=== PATIENT | female | born 1960 | race Caucasian/White ===

== ENCOUNTER 2022-10-17 11:51 | Observation (INO) | payer BC ==
--- OUTSIDE RECORDS SUMMARY | 2022-10-17 11:59 | XMS REPORT | Continuity of Care Document ---
:1960 Author Organization [facility] t Address [address] [place] [address] Care Team Providers Name Role Phone Kolby Sewell MD Primary Care Physician KOLBY SEWELL Attending Clinician Unavailable BIA DIAZ Attending Clinician Unavailable [id number] Attending Clinician Unavailable ESTHER VENCES Attending Clinician Unavailable PRISCA FALOCN Attending Clinician Unavailable MD MORENO Attending Clinician Unavailable FLU, CLEAR HERNANDEZ Attending Clinician Unavailable FLU, [facility] Attending Clinician Unavailable TESS BYERS Attending Clinician Unavailable SHANNON BECKER Attending Clinician Unavailable COVID-MODERNA VACC, TO Attending Clinician Unavailable CHEO APODACA Attending Clinician Unavailable COVID-MODERNA VACC, CLEAR HERNANDEZ Attending Clinician Unavailab le LAB39 Attending Clinician Unavailable Shannon Becker MD Attending Clinician Britany Toro OD Attending Clinician FANY REAL Attending Clinician Unavailable TORRES DAMICO Attending Clinician Unavailable RAS GARRIDO Attending Clinician Unavailable JUD CHO Attending Clinician Unavailable SWAB, CK COVID SELF Attending Clinician Unavailable TRED53 Attending Clinician Unavailable Bharath Chavez MD Attending Clinician Ras Garrido MD Attending Clinician TAMIA SARGENT Attending Clinician Unavailable RAGHAVENDRA ISLVA Attending Clinician Unavailable Kolby Sewell MD Attending Clinician Vangie SHEN, Esther Attending Clinician Roland SHEN, Kehinde Salas Attending Clinician JACQUELIN ELIZALDE Attending Clinician Unavailable Payers Payer Name Policy Type Policy Number Effective Date Expiration Date Bowen fonseca [facility] [id number] 2021 [place] ([employer] 00:00:00 CAPITATED) Problems Condition Condition Condition Status Onset Resolution Last Treating Co mments Source Name Details Category Date Date Treatment Clinician Date Hyperlipid Hyperlipid Disease Active 2020-09 K elsey emia LDL emia LDL 2-14 Seybol d goal <100 goal <100 00:00: - 00 Externa l Essential Essential Disease Active Karlos sey hypertensi hypertensi 1-20 Se ybold on on 00:00: - 00 Externa l Allergies, Adverse Reactions, Alerts Allergy Allergy Status Severity Reaction(s) Onset Inactive Treating Comm ents Source Name Type Date Date Clinician Bee Propensi Active Other Tsering Venom ty to 05-07 reaction( Seybold adverse 00:00: s): - reaction 00 Unknown - Exter na s See l comments Sulfa Propensi Active Rash Tsering Drugs ty to 05-07 Seybold adverse 00:00: - reaction 00 Externa s l Na Propensi Active Rash Tsering Benzoate ty to 02-20 Seybold -Sulfame adverse 00:00: - thoxazol reaction 00 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 Bee Propensi Active Tsering ty to 02-20 Seybold adverse 00:00: - reaction 00 Externa s l Benzocai Propensi Active Swelling Roslyn ey ne ty to 02-20 Seybold adverse 00:00: - reaction 00 Externa s l Lidocain Propensi Active Swelling Roslyn ey e ty to 02-20 Seybold adverse 00:00: - reaction 00 Externa s l Procaine Propensi Active Swelling Roslyn ey Hcl ty to 02-20 Seybold adverse 00:00: - reaction 00 Externa s l Social History Social Habit Start Date Stop Date Quantity Comments Source History SDOH Tsering Seybo ld - Alcohol Frequency Externa l History SDOH Tsering [place] ld - Alcohol Std Drinks 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 al History SDOH Tsering [place] ld - Alcohol Binge External Alcohol intake 2022-09-29 2022-09-29 .57 /d Tsering tran - 00:00:00 00:00:00 External Exposure to 2021-12-27 2022-01-06 Not sure Tsering Alexander d SARS-CoV-2 (event) 00:00:00 08:15:00 Tobacco use and 2018-07-04 2018-07-04 Smokeless tobacco Ke netta Smith - exposure 00:00:00 00:00:00 non-user External Tobacco Comment 2015-12-19 2015-12-19 quit 10 years Tsering Smith - 00:00:00 00:00:00 ago, smoked for External 30 years, 1/2 pack a day Alcohol Comment 2015-02-20 2015-02-20 occa Tsering milner - 00:00:00 00:00:00 External History of tobacco 2005-09-04 Smoker Tsering Smith - use 00:00:00 External Sex [birth year] Tsering milner - 00:00:00 00:00:00 External Smoking Status Start Date Stop Date Source Ex-smoker 2018-07-04 00:00:00 2018-07-04 00:00:00 Tsering kaur - External Medications Ordered Filled Start Stop Current Ordering Indication Dosage Frequency Signature Comments Components Source Medication Medication Date Date Medication? Clinician (SIG) Name Name TIFFANIE Yes Take by Roslyn torres OR 09-29 mouth Seybold 14:25: - 37 Externa l Multiple Yes Take by Tsering Vitamins-Mi 09-29 mouth Seybold nerals 14:25: - (ZINC OR) 37 Externa l COLLAGEN OR Yes Take by Karlos palomoy 09-29 mouth Seybold 14:25: - 37 Externa l KRILL OIL Yes Take by Karlosse y OR 09-29 mouth Seybold 14:25: - 37 Externa l OMEPRAZOLE Yes Take by Roslyn ey OR 09-29 mouth Seybold 14:25: - 37 Externa l Flaxseed, 2022- No Take by Roslyn torres Linseed, 09-29 mouth Seybold (Flax Seed 14:24: 00:00 - Oil) 1000 19 :00 Externa MG oral Cap l Misc 2022- No Take by Tsering Natural 09-29 mouth Seybold Products 14:23: 00:00 - (FIBER 7 57 :00 Externa OR) l Vitamin E 2022- No 100U Take 100 Karlos sey 100 units 09-29 units by Seybo ld oral Cap 14:23: 00:00 mouth - 51 :00 daily Externa l Cyanocobala 2022- No Take by [place] chadwick min 09-29 mouth Seybold (VITAMIN B 14:22: 00:00 - 12 OR) 32 :00 Externa l Cholecalcif 2022- No Take by [place] chadwick fatmata 09-29 mouth Seybold (Vitamin 14:22: 00:00 - D3) 1.25 MG 20 :00 Externa (44708 UT) l oral Cap Multiple Yes Take by Tsering Vitamin 09-29 mouth Seybold (MULTI-CATHI 14:07: - MINS OR) 37 Externa l Ascorbic Yes 100mg Take 100 Roslyn ey Acid 09-29 mg by Seybold (Vitamin C) 14:07: mouth - 100 MG oral 37 daily Externa Tab l Bacillus Yes Take by Tsering Coagulans-I 09-29 mouth Seybold nulin 14:07: - (Probiotic) 37 Externa 1-250 l BILLION-MG oral Cap Carvedilol 2021-09 Yes [id number] 12.5mg Take 1 Tsering 12.5 MG 2-08 tablet Seybold oral Tablet 00:00: (12.5 mg - 00 total) by Externa mouth in l the morning and 1 tablet (12.5 mg total) in the evening. Take with meals. For blood pressure and heart rate. Rosuvastati 2021-09 Yes [id number] 10mg Take 1 Tsering n Calcium 2-08 tablet (10 Seyb old 10 MG oral 00:00: mg total) - Tablet 00 by mouth Externa daily l Multiple 2021-09 Yes Take by Tsering Vitamin -11 mouth Seybold (MULTI-CATHI 14:01: - MINS OR) 02 Externa l Ascorbic 2021-09 Yes 100mg Take 100 Roslyn ey Acid 1-11 mg by Seybold (Vitamin C) 14:01: mouth - 100 MG oral 02 daily Externa Tab l Cholecalcif 2021-09 Yes Take by Karlos enrike fatmata 09-14 mouth Seybold (Vitamin 14:01: - D3) 1.25 MG 02 Externa (11944 UT) l oral Cap Cyanocobala 2021-09 Yes Take by Karlos palomoshai min 11 mouth Seybold (VITAMIN B 14:01: - 12 OR) 02 Externa l Vitamin E 2021-09 Yes 100U Take 100 Roslyn ey 100 units 09-14 units by Seybol d oral Cap 14:01: mouth - 02 daily Externa l Flaxseed, 2021-09 Yes Take by Azeb y Linseed, -11 mouth Seybold (Flax Seed 14:01: - Oil) 1000 02 Externa MG oral Cap l Bacillus 2021-09 Yes Take by Tsering Coagulans-I -11 mouth Seybold nulin 14:01: - (Probiotic) 02 Externa 1-250 l BILLION-MG oral Cap Misc 2021-09 Yes Take by Tsering Natural 11 mouth Seybold Products 14:01: - (FIBER 7 02 Externa OR) l Estradiol 2021-09 Yes Three Tsering (Vagifem) -11 times Seybold 10 MCG 00:00: weekly - vaginal 00 Externa Tablet l ESTRADIOL 2021-09 Yes To vaginal Ke lsey VAGINAL 09-14 introitus Seybold (ESTRACE 00:00: nightly - VAGINAL) 00 Externa 0.1 MG/GM l vaginal Cream Estradiol 2021-09- No Three Tsering (Vagifem) 09-14 times Seybold 10 MCG 00:00: 00:00 weekly - vaginal 00 :00 Externa Tablet l ESTRADIOL 2021-09- No To vaginal K elsey VAGINAL 09-14 introitus Seybol d (ESTRACE 00:00: 00:00 nightly - VAGINAL) 00 :00 Externa 0.1 MG/GM l vaginal Cream Yuvafem [address] Orslyn ey MCG vaginal 9-29 TABLET Seybol d Tablet 00:00: VAGINALLY - 00 TWICE A Externa WEEK. l Yuvafem [address] Roslyn ey MCG vaginal 9-29 TABLET Seybol d Tablet 00:00: VAGINALLY - 00 TWICE A Externa WEEK. l Multiple Yes Take by Tsering Vitamin 5-20 mouth Seybold (MULTI-CATHI 15:27: MINS OR) 16 Ascorbic Yes 100mg Take 100 Roslyn ey Acid 5-20 mg by Seybold (Vitamin C) 15:27: mouth 100 MG oral 16 daily Tab Cholecalcif Yes Take by Karlos palomoy fatmata 5-20 mouth Seybold (Vitamin 15:27: D3) 1.25 MG 16 (14045 UT) oral Cap Cyanocobala Yes Take by Karlos calvert min 5-20 mouth Seybold (VITAMIN B 15:27: 12 OR) 16 Vitamin E Yes 100U Take 100 Roslyn ey 100 units 5-20 units by Seybol d oral Cap 15:27: mouth 16 daily Flaxseed, Yes Take by Azeb y Linseed, 5-20 mouth Seybold (Flax Seed 15:27: Oil) 1000 16 MG oral Cap Bacillus Yes Take by Tsering Coagulans-I 5-20 mouth Seybold nulin 15:27: (Probiotic) 16 1-250 BILLION-MG oral Cap Misc Yes Take by Tsering Natural 5-20 mouth Seybold Products 15:27: (FIBER 7 16 OR) Multiple Yes Take by Tsering Vitamin 3-12 mouth Seybold (MULTI-CATHI 09:23: MINS OR) 51 Ascorbic 0 Yes 100mg Take 100 Roslyn ey Acid 3-12 mg by Seybold (Vitamin C) 09:23: mouth 100 MG oral 51 daily Tab Cholecalcif Yes Take by Karlos palomoy fatmata 3-12 mouth Seybold (Vitamin 09:23: D3) 1.25 MG 51 (71186 UT) oral Cap Cyanocobala Yes Take by Karlos sey min 3-12 mouth Seybold (VITAMIN B 09:23: 12 OR) 51 Vitamin E 2021-0 Yes 100U Take 100 Roslyn ey 100 units 3-12 units by Seybol d oral Cap 09:23: mouth 51 daily Flaxseed, 2021-0 Yes Take by Azeb y Linseed, 3-12 mouth Seybold (Flax Seed 09:23: Oil) 1000 51 MG oral Cap Bacillus 0 Yes Take by Tsering Coagulans-I 3-12 mouth Seybold nulin 09:23: (Probiotic) 51 1-250 BILLION-MG oral Cap Misc Yes Take by Tsering Natural 3-12 mouth Seybold Products 09:23: (FIBER 7 51 OR) Multiple Yes Take by Tsering Vitamin 3-12 mouth Seybold (MULTI-CATHI 09:23: MINS OR) 51 Ascorbic 0 Yes 100mg Take 100 Roslyn ey Acid 3-12 mg by Seybold (Vitamin C) 09:23: mouth 100 MG oral 51 daily Tab Cholecalcif Yes Take by Karlos enrike fatmata 3-12 mouth Seybold (Vitamin 09:23: D3) 1.25 MG 51 (97642 UT) oral Cap Cyanocobala 0 Yes Take by Karlos enrike min 3-12 mouth Seybold (VITAMIN B 09:23: 12 OR) 51 Vitamin E 0 Yes 100U Take 100 Roslyn ey 100 units 3-12 units by Seybol d oral Cap 09:23: mouth 51 daily Flaxseed, 0 Yes Take by Azeb y Linseed, 3-12 mouth Seybold (Flax Seed 09:23: Oil) 1000 51 MG oral Cap Bacillus 0 Yes Take by Tsering Coagulans-I 3-12 mouth Seybold nulin 09:23: (Probiotic) 51 1-250 BILLION-MG oral Cap Misc Yes Take by Tsering Natural 3-12 mouth Seybold Products 09:23: (FIBER 7 51 OR) Methylpredn 0 2021- No [id number] 40mg Tsering isolone 10-13 Seybold Acetate 20:15: 22:08 (Depo-Medro 00 :00 l) 40 mg/ml - Physician Administere d (J1030) Methylpredn 0 2021- No [id number] 40mg 40 mg, Tsering isolone 2-05 06- Physician Seybol d Acetate 20:15: 22:08 Administer (Depo-Medro 00 :00 ed, ONCE, l) 40 mg/ml 1 dose, On - Physician 10/13/21 Administere at 1415 d (J1030) Multiple Yes Take by Tsering Vitamin 2-09 mouth Seybold (MULTI-CATHI 13:47: MINS OR) 07 Ascorbic Yes 100mg Take 100 Roslyn ey Acid 2-09 mg by Seybold (Vitamin C) 13:47: mouth 100 MG oral 07 daily Tab Cholecalcif Yes Take by Karlos calvert fatmata 2-09 mouth Seybold (Vitamin 13:47: D3) 1.25 MG 07 (95819 UT) oral Cap Cyanocobala Yes Take by Karlos calvert min 2-09 mouth Seybold (VITAMIN B 13:47: 12 OR) 07 Vitamin E Yes 100U Take 100 Roslyn ey 100 units 2-09 units by Seybol d oral Cap 13:47: mouth 07 daily Flaxseed, Yes Take by Azeb y Linseed, 2-09 mouth Seybold (Flax Seed 13:47: Oil) 1000 07 MG oral Cap Bacillus Yes Take by Tsering Coagulans-I 2-09 mouth Seybold nulin 13:47: (Probiotic) 07 1-250 BILLION-MG oral Cap Misc Yes Take by Tsering Natural 2-09 mouth Seybold Products 13:47: (FIBER 7 07 OR) Multiple 2020-09 Yes Take by Tsering Vitamin 2-14 mouth Seybold (MULTI-CATHI 14:08: MINS OR) 53 Ascorbic 2020-09 Yes 100mg Take 100 Roslyn ey Acid 2-14 mg by Seybold (Vitamin C) 14:08: mouth 100 MG oral 53 daily Tab Cholecalcif 2020-09 Yes Take by Karlos calvert fatmata 2-14 mouth Seybold (Vitamin 14:08: D3) 1.25 MG 53 (11128 UT) oral Cap Cyanocobala 2020-09 Yes Take by Karlos palomoy min 2-14 mouth Seybold (VITAMIN B 14:08: 12 OR) 53 Vitamin E 2020-09 Yes 100U Take 100 Roslyn ey 100 units 2-14 units by Seybol d oral Cap 14:08: mouth 53 daily Flaxseed, 2020-09 Yes Take by Azeb y Linseed, 2-14 mouth Seybold (Flax Seed 14:08: Oil) 1000 53 MG oral Cap Bacillus 2020-09 Yes Take by Tsering Coagulans-I 2-14 mouth Seybold nulin 14:08: (Probiotic) 53 1-250 BILLION-MG oral Cap Misc 2020-09 Yes Take by Tsering Natural 2-14 mouth Seybold Products 14:08: (FIBER 7 53 OR) Rosuvastati 2020-09 Yes [id number] 10mg Take 1 Tsering n Calcium 2-14 tablet (10 Seyb old 10 MG oral 00:00: mg total) Tablet 00 by mouth daily For cholestero l and triglyceri guillermina PEG-ELECTRO 2020-09 Yes [id number] Instructio Tsering LYTE SOLN 2-14 n given to Seyb old (Golytely) 00:00: patient in 236 g oral 00 clinic. Recon Soln Use as directed by provider during office visit. Rosuvastati 2020-09 Yes [id number] 10mg Take 1 Tsering n Calcium 2-14 tablet (10 Seyb old 10 MG oral 00:00: mg total) Tablet 00 by mouth daily For cholestero l and triglyceri guillermina Rosuvastati 2020-09 Yes [id number] 10mg Take 1 Tsering n Calcium 2-14 tablet (10 Seyb old 10 MG oral 00:00: mg total) Tablet 00 by mouth daily For cholestero l and triglyceri guillermina Rosuvastati 2020-09 Yes [id number] 10mg Take 1 Tsering n Calcium 2-14 tablet (10 Seyb old 10 MG oral 00:00: mg total) Tablet 00 by mouth daily For cholestero l and triglyceri guillermina Rosuvastati 2020-09 Yes [id number] 10mg Take 1 Tsering n Calcium 2-14 tablet (10 Seyb old 10 MG oral 00:00: mg total) Tablet 00 by mouth daily For cholestero l and triglyceri guillermina Rosuvastati 2020-09 Yes [id number] 10mg Take 1 Tsering n Calcium 2-14 tablet (10 Seyb old 10 MG oral 00:00: mg total) - Tablet 00 by mouth Externa daily For l cholestero l and triglyceri guillermina Bacillus 2020-09 Yes Take by Tsering Coagulans-I 2-10 mouth Seybold nulin 15:23: (Probiotic) 02 1-250 BILLION-MG oral Cap Multiple 2020-09 Yes Take by Tsering Vitamin 2-10 mouth Seybold (MULTI-CATHI 15:16: MINS OR) 37 Ascorbic 2020-09 Yes 100mg Take 100 Roslyn ey Acid 2-10 mg by Seybold (Vitamin C) 15:16: mouth 100 MG oral 37 daily Tab Cholecalcif 2020-09 Yes Take by Karlos calvert fatmata 2-10 mouth Seybold (Vitamin 15:16: D3) 1.25 MG 37 (71136 UT) oral Cap Cyanocobala 2020-09 Yes Take by Karlos calvert min 2-10 mouth Seybold (VITAMIN B 15:16: 12 OR) 37 Vitamin E 2020-09 Yes 100U Take 100 Roslyn ey 100 units 2-10 units by Seybol d oral Cap 15:16: mouth 37 daily Flaxseed, 2020-09 Yes Take by Azeb y Linseed, 2-10 mouth Seybold (Flax Seed 15:16: Oil) 1000 37 MG oral Cap Misc 2020-09 Yes Take by Tsering Natural 2-10 mouth Seybold Products 15:16: (FIBER 7 37 OR) Carvedilol 2020-09 Yes [id number] 12.5mg Take 1 Tsering 12.5 MG 2-10 tablet Seybold oral Tablet 00:00: (12.5 mg 00 total) by mouth 2 times daily (with meals) For blood pressure and heart rate Lisinopril 2020-09 Yes [id number] 40mg Take 1 K elsey 40 MG oral 2-10 tablet (40 Sey bold Tablet 00:00: mg total) 00 by mouth daily Carvedilol 2020-09 Yes [id number] 12.5mg Take 1 Tsering 12.5 MG 2-10 tablet Seybold oral Tablet 00:00: (12.5 mg 00 total) by mouth 2 times daily (with meals) For blood pressure and heart rate Lisinopril 2020-09 Yes [id number] 40mg Take 1 K elsey 40 MG oral 2-10 tablet (40 Sey bold Tablet 00:00: mg total) 00 by mouth daily Carvedilol 2020-09 Yes [id number] 12.5mg Take 1 Tsering 12.5 MG 2-10 tablet Seybold oral Tablet 00:00: (12.5 mg 00 total) by mouth 2 times daily (with meals) For blood pressure and heart rate Lisinopril 2020-09 Yes [id number] 40mg Take 1 K elsey 40 MG oral 2-10 tablet (40 Sey bold Tablet 00:00: mg total) 00 by mouth daily Carvedilol 2020-09 Yes [id number] 12.5mg Take 1 Tsering 12.5 MG 2-10 tablet Seybold oral Tablet 00:00: (12.5 mg 00 total) by mouth 2 times daily (with meals) For blood pressure and heart rate Lisinopril 2020-09 Yes [id number] 40mg Take 1 K elsey 40 MG oral 2-10 tablet (40 Sey bold Tablet 00:00: mg total) 00 by mouth daily Carvedilol 2020-09 Yes [id number] 12.5mg Take 1 Tsering 12.5 MG 2-10 tablet Seybold oral Tablet 00:00: (12.5 mg 00 total) by mouth 2 times daily (with meals) For blood pressure and heart rate Lisinopril 2020-09 Yes [id number] 40mg Take 1 K elsey 40 MG oral 2-10 tablet (40 Sey bold Tablet 00:00: mg total) 00 by mouth daily Carvedilol 2020-09 Yes [id number] 12.5mg Take 1 Tsering 12.5 MG 2-10 tablet Seybold oral Tablet 00:00: (12.5 mg 00 total) by mouth 2 times daily (with meals) For blood pressure and heart rate Lisinopril 2020-09 Yes [id number] 40mg Take 1 K elsey 40 MG oral 2-10 tablet (40 Sey bold Tablet 00:00: mg total) 00 by mouth daily Carvedilol 2020-09 Yes [id number] 12.5mg Take 1 Tsering 12.5 MG 2-10 tablet Seybold oral Tablet 00:00: (12.5 mg - 00 total) by Externa mouth 2 l times daily (with meals) For blood pressure and heart rate Lisinopril 2020-09 Yes [id number] 40mg Take 1 K elsey 40 MG oral 2-10 tablet (40 Sey bold Tablet 00:00: mg total) - 00 by mouth Externa daily l Lisinopril 2020-09 Yes [id number] 40mg Take 1 K elsey 40 MG oral 2-10 tablet (40 Sey bold Tablet 00:00: mg total) - 00 by mouth Externa daily l Estradiol 2020-09 Yes 1{tbl} Place 1 Karlos sey (Yuvafem) 0-18 tablet Seybold 10 MCG 00:00: vaginally vaginal 00 twice a Tablet week Estradiol 2020-09 Yes 1{tbl} Place 1 Karlos sey (Yuvafem) 0-18 tablet Seybold 10 MCG 00:00: vaginally vaginal 00 twice a Tablet week Estradiol 2020-09 Yes 1{tbl} Place 1 Karlos sey (Yuvafem) 0-18 tablet Seybold 10 MCG 00:00: vaginally vaginal 00 twice a Tablet week Estradiol 2020-09 Yes 1{tbl} Place 1 Karlos sey (Yuvafem) 0-18 tablet Seybold 10 MCG 00:00: vaginally vaginal 00 twice a Tablet week Estradiol 2020-09 Yes 1{tbl} Place 1 Karlos sey (Yuvafem) 0-18 tablet Seybold 10 MCG 00:00: vaginally vaginal 00 twice a Tablet week Estradiol 2020-09 Yes 1{tbl} Place 1 Karlos sey (Yuvafem) 0-18 tablet Seybold 10 MCG 00:00: vaginally vaginal 00 twice a Tablet week Estradiol 2020-09 Yes 1{tbl} Place 1 Karlos sey (Yuvafem) 0-18 tablet Seybold 10 MCG 00:00: vaginally vaginal 00 twice a Tablet week Multiple 2020-09 Yes Take by Tsering Vitamin 0-15 mouth Seybold (MULTI-CATHI 13:20: MINS OR) 30 Ascorbic 2020-09 Yes 100mg Take 100 Roslyn ey Acid 0-15 mg by Seybold (Vitamin C) 13:20: mouth 100 MG oral 30 daily Tab Cholecalcif 2020-09 Yes Take by Karlos calvert fatmata 0-15 mouth Seybold (Vitamin 13:20: D3) 1.25 MG 30 (71474 UT) oral Cap Cyanocobala 2020-09 Yes Take by Karlos palomoy min 0-15 mouth Seybold (VITAMIN B 13:20: 12 OR) 30 Vitamin E 2020-09 Yes 100U Take 100 Roslyn ey 100 units 0-15 units by Seybol d oral Cap 13:20: mouth 30 daily Flaxseed, 2020-09 Yes Take by Azeb y Linseed, 0-15 mouth Seybold (Flax Seed 13:20: Oil) 1000 30 MG oral Cap Bacillus 2020-09 Yes Take by Tsering Coagulans-I 0-15 mouth Seybold nulin 13:20: (Probiotic) 30 1-250 BILLION-MG oral Cap Misc 2020-09 Yes Take by Tsering Natural 0-15 mouth Seybold Products 13:20: (FIBER 7 30 OR) ESTRADIOL 2020-09 Yes Pea size Roslyn ey VAGINAL 0-15 to Seybold (ESTRACE 00:00: introitus VAGINAL) 00 nightly. 0.1 MG/GM vaginal Cream ESTRADIOL 2020-09 Yes Pea size Roslyn ey VAGINAL 0-15 to Seybold (ESTRACE 00:00: introitus VAGINAL) 00 nightly. 0.1 MG/GM vaginal Cream ESTRADIOL 2020-09 Yes Pea size Roslyn ey VAGINAL 0-15 to Seybold (ESTRACE 00:00: introitus VAGINAL) 00 nightly. 0.1 MG/GM vaginal Cream ESTRADIOL 2020-09 Yes Pea size Roslyn ey VAGINAL 0-15 to Seybold (ESTRACE 00:00: introitus VAGINAL) 00 nightly. 0.1 MG/GM vaginal Cream ESTRADIOL 2020-09 Yes Pea size Roslyn ey VAGINAL 0-15 to Seybold (ESTRACE 00:00: introitus VAGINAL) 00 nightly. 0.1 MG/GM vaginal Cream ESTRADIOL 2020-09 Yes Pea size Roslyn ey VAGINAL 0-15 to Seybold (ESTRACE 00:00: introitus VAGINAL) 00 nightly. 0.1 MG/GM vaginal Cream ESTRADIOL 2020-09 Yes Pea size Roslyn ey VAGINAL 0-15 to Seybold (ESTRACE 00:00: introitus - VAGINAL) 00 nightly. Externa 0.1 MG/GM l vaginal Cream ESTRADIOL 2020-09 Yes Pea size Roslyn ey VAGINAL 0-15 to Seybold (ESTRACE 00:00: introitus VAGINAL) 00 nightly. 0.1 MG/GM vaginal Cream ESTRADIOL 2020-09- No Pea size Karlos sey VAGINAL 0-15 -26 to Seybold (ESTRACE 00:00: 00:00 introitus - VAGINAL) 00 :00 nightly. Externa 0.1 MG/GM l vaginal Cream Multiple Yes Take by Tsering Vitamin -17 mouth Seybold (MULTI-CATHI 15:05: MINS OR) 25 Ascorbic Yes 100mg Take 100 Roslyn ey Acid 9-17 mg by Seybold (Vitamin C) 15:05: mouth 100 MG oral 25 daily Tab Cholecalcif Yes Take by Karlos calvert fatmata 17 mouth Seybold (Vitamin 15:05: D3) 1.25 MG 25 (01263 UT) oral Cap Cyanocobala Yes Take by Karlos calvert min 05-21 mouth Seybold (VITAMIN B 15:05: 12 OR) 25 Vitamin E Yes 100U Take 100 Roslyn ey 100 units 05-21 units by Seybol d oral Cap 15:05: mouth 25 daily Flaxseed, Yes Take by Azeb y Linseed, 05-21 mouth Seybold (Flax Seed 15:05: Oil) 1000 25 MG oral Cap Bacillus Yes Take by Tsering Coagulans-I 05-21 mouth Seybold nulin 15:05: (Probiotic) 25 1-250 BILLION-MG oral Cap Misc Yes Take by Tsering Natural 17 mouth Seybold Products 15:05: (FIBER 7 25 OR) Ciprofloxac Yes [id number] 500mg Take 1 Tsering in HCl 500 9-17 tablet Seybold MG oral 00:00: (500 mg Tablet 00 total) by mouth 2 times daily Metronidazo Yes [id number] 500mg Take 1 Tsering le 500 MG 9-17 tablet Seybold oral Tablet 00:00: (500 mg 00 total) by mouth 3 times daily Ciprofloxac Yes [id number] 500mg Take 1 Tsering in HCl 500 9-17 tablet Seybold MG oral 00:00: (500 mg Tablet 00 total) by mouth 2 times daily Metronidazo 2020-0 Yes [id number] 500mg Take 1 Tsering le 500 MG 9-17 tablet Seybold oral Tablet 00:00: (500 mg 00 total) by mouth 3 times daily Metronidazo 2020-0 Yes [id number] 500mg Take 1 Tsering le 500 MG 9-17 tablet Seybold oral Tablet 00:00: (500 mg 00 total) by mouth 3 times daily Metronidazo 0 Yes [id number] 500mg Take 1 Tsering le 500 MG 9-17 tablet Seybold oral Tablet 00:00: (500 mg 00 total) by mouth 3 times daily Metronidazo Yes [id number] 500mg Take 1 Tsering le 500 MG 9-17 tablet Seybold oral Tablet 00:00: (500 mg 00 total) by mouth 3 times daily Metronidazo 2020-0 Yes [id number] 500mg Take 1 Tsering le 500 MG 9-17 tablet Seybold oral Tablet 00:00: (500 mg 00 total) by mouth 3 times daily Metronidazo 0 Yes [id number] 500mg Take 1 Tsering le 500 MG 9-17 tablet Seybold oral Tablet 00:00: (500 mg - 00 total) by Externa mouth 3 l times daily Ciprofloxac 0 Yes [id number] 500mg Take 1 Tsering in HCl 500 9-17 tablet Seybold MG oral 00:00: (500 mg Tablet 00 total) by mouth 2 times daily Metronidazo 0 Yes [id number] 500mg Take 1 Tsering le 500 MG 9-17 tablet Seybold oral Tablet 00:00: (500 mg 00 total) by mouth 3 times daily Ciprofloxac 0 Yes [id number] 500mg Take 1 Tsering in HCl 500 9-17 tablet Seybold MG oral 00:00: (500 mg Tablet 00 total) by mouth 2 times daily Metronidazo Yes [id number] 500mg Take 1 Tsering le 500 MG 9-17 tablet Seybold oral Tablet 00:00: (500 mg 00 total) by mouth 3 times daily Metronidazo 2020-0 2023- No [id number] 500mg Take 1 Tsering le 500 MG -17 -26 tablet Seybold oral Tablet 00:00: 00:00 (500 mg - 00 :00 total) by Externa mouth 3 l times daily Lisinopril Yes [id number] 40mg Take 1 K elsey 40 MG oral 2-26 tablet (40 Sey bold Tablet 00:00: mg total) 00 by mouth daily Lisinopril Yes [id number] 40mg Take 1 K elsey 40 MG oral 2-26 tablet (40 Sey bold Tablet 00:00: mg total) 00 by mouth daily Lisinopril 2020- No [id number] 40mg Take 1 Tsering 40 MG oral 2-26 12-10 tablet (40 Se ybold Tablet 00:00: 00:00 mg total) 00 :00 by mouth daily EPINEPHrine Yes [id number] .15mg Inject 0.3 Tsering (EPIPEN) 2-03 mL (0.15 Seybold 0.15 00:00: mg total) MG/0.3ML 00 as injection directed Solution as needed Auto-inject for or anaphylaxi s EPINEPHrine Yes [id number] .15mg Inject 0.3 Tsering (EPIPEN) 2-03 mL (0.15 Seybold 0.15 00:00: mg total) MG/0.3ML 00 as injection directed Solution as needed Auto-inject for or anaphylaxi s EPINEPHrine Yes [id number] .15mg Inject 0.3 Tsering (EPIPEN) 2-03 mL (0.15 Seybold 0.15 00:00: mg total) MG/0.3ML 00 as injection directed Solution as needed Auto-inject for or anaphylaxi s EPINEPHrine Yes [id number] .15mg Inject 0.3 Tsering (EPIPEN) 2-03 mL (0.15 Seybold 0.15 00:00: mg total) MG/0.3ML 00 as injection directed Solution as needed Auto-inject for or anaphylaxi s EPINEPHrine Yes [id number] .15mg Inject 0.3 Tsering (EPIPEN) 2-03 mL (0.15 Seybold 0.15 00:00: mg total) MG/0.3ML 00 as injection directed Solution as needed Auto-inject for or anaphylaxi s EPINEPHrine Yes [id number] .15mg Inject 0.3 Tsering (EPIPEN) 2-03 mL (0.15 Seybold 0.15 00:00: mg total) MG/0.3ML 00 as injection directed Solution as needed Auto-inject for or anaphylaxi s EPINEPHrine Yes [id number] .15mg Inject 0.3 Tsering (EPIPEN) 2-03 mL (0.15 Seybold 0.15 00:00: mg total) - MG/0.3ML 00 as Externa injection directed l Solution as needed Auto-inject for or anaphylaxi s EPINEPHrine Yes [id number] .15mg Inject 0.3 Tsering (EPIPEN) 2-03 mL (0.15 Seybold 0.15 00:00: mg total) - MG/0.3ML 00 as Externa injection directed l Solution as needed Auto-inject for or anaphylaxi s EPINEPHrine Yes [id number] .15mg Inject 0.3 Tsering (EPIPEN) 2-03 mL (0.15 Seybold 0.15 00:00: mg total) MG/0.3ML 00 as injection directed Solution as needed Auto-inject for or anaphylaxi s EPINEPHrine Yes [id number] .15mg Inject 0.3 Tsering (EPIPEN) 2-03 mL (0.15 Seybold 0.15 00:00: mg total) MG/0.3ML 00 as injection directed Solution as needed Auto-inject for or anaphylaxi s Estradiol 2019-09 Yes 1{tbl} Place 1 Karlos y (Vagifem) 2-17 tablet Seybold 10 MCG 00:00: vaginally vaginal Tab 00 twice a week Conj 2019-09 Yes [id number] 1{tbl} Take 1 Kelse y Estrog-Medr 2-17 tablet by Enrike bold oxyprogest 00:00: mouth Eleno 00 daily (Prempro) 0.3-1.5 MG oral Tab Estradiol 2019-09 Yes 1{tbl} Place 1 Karlos y (Vagifem) 2-17 tablet Seybold 10 MCG 00:00: vaginally vaginal Tab 00 twice a week Conj 2019-09 Yes [id number] 1{tbl} Take 1 Kelse y Estrog-Medr 2-17 tablet by Sey bold oxyprogest 00:00: mouth Eleno 00 daily (Prempro) 0.3-1.5 MG oral Tab Estradiol 2019- Yes 1{tbl} Place 1 Karlos sey (Vagifem) 2-17 tablet Seybold 10 MCG 00:00: vaginally vaginal Tab 00 twice a week Conj 2019-09 Yes [id number] 1{tbl} Take 1 Kelse y Estrog-Medr 2-17 tablet by Sey bold oxyprogest 00:00: mouth Eleno 00 daily (Prempro) 0.3-1.5 MG oral Tab Conj 2019-09 Yes [id number] 1{tbl} Take 1 Kelse y Estrog-Medr 2-17 tablet by Sey bold oxyprogest 00:00: mouth Eleno 00 daily (Prempro) 0.3-1.5 MG oral Tab Conj 2019-09 Yes [id number] 1{tbl} Take 1 Kelse y Estrog-Medr 2-17 tablet by Sey bold oxyprogest 00:00: mouth Eleno 00 daily (Prempro) 0.3-1.5 MG oral Tab Conj 2019-09 Yes [id number] 1{tbl} Take 1 Kelse y Estrog-Medr 2-17 tablet by Sey bold oxyprogest 00:00: mouth Eleno 00 daily (Prempro) 0.3-1.5 MG oral Tab Conj 2019-09 Yes [id number] 1{tbl} Take 1 Kelse y Estrog-Medr 2-17 tablet by Sey bold oxyprogest 00:00: mouth - Eleno 00 daily Externa (Prempro) l 0.3-1.5 MG oral Tab Conj 2019-09 Yes [id number] 1{tbl} Take 1 Kelse y Estrog-Medr 2-17 tablet by Sey bold oxyprogest 00:00: mouth - Eleno 00 daily Externa (Prempro) l 0.3-1.5 MG oral Tab Estradiol 2019-09 Yes 1{tbl} Place 1 Karlos sey (Vagifem) 2-17 tablet Seybold 10 MCG 00:00: vaginally vaginal Tab 00 twice a week Conj 2019-09 Yes [id number] 1{tbl} Take 1 Kelse y Estrog-Medr 2-17 tablet by Sey bold oxyprogest 00:00: mouth Eleno 00 daily (Prempro) 0.3-1.5 MG oral Tab Estradiol 2019-09 Yes 1{tbl} Place 1 Karlos sey (Vagifem) 2-17 tablet Seybold 10 MCG 00:00: vaginally vaginal Tab 00 twice a week Conj 2019-09 Yes [id number] 1{tbl} Take 1 Kelse y Estrog-Medr 2-17 tablet by Sey bold oxyprogest 00:00: mouth Eleno 00 daily (Prempro) 0.3-1.5 MG oral Tab Estradiol 2019-09- No 1{tbl} Place 1 [place] chadwick (Vagifem) 2-17 03-12 tablet Seybold 10 MCG 00:00: 00:00 vaginally vaginal Tab 00 :00 twice a week Carvedilol 2019-09 Yes [id number] 12.5mg Take 1 Tsering 12.5 MG 2-10 tablet Seybold oral Tab 00:00: (12.5 mg 00 total) by mouth 2 times daily (with meals) For blood pressure and heart rate Carvedilol 2019-09 Yes [id number] 12.5mg Take 1 [facility] 12.5 MG 2-10 tablet Seybold oral Tab 00:00: (12.5 mg 00 total) by mouth 2 times daily (with meals) For blood pressure and heart rate Carvedilol 2019-09- No [id number] 12.5mg Take 1 [facility] 12.5 MG 2-10 12-10 tablet Seybold oral Tab 00:00: 00:00 (12.5 mg 00 :00 total) by mouth 2 times daily (with meals) For blood pressure and heart rate Rosuvastati 2019-09 Yes [id number] 10mg Take 1 Tsering n Calcium 2-01 tablet (10 Seyb old 10 MG oral 00:00: mg total) Tab 00 by mouth daily For cholestero l and triglyceri guillermina Rosuvastati 2019-09 Yes [id number] 10mg Take 1 [facility]sering n Calcium 2-01 tablet (10 Seyb old 10 MG oral 00:00: mg total) Tab 00 by mouth daily For cholestero l and triglyceri guillermina Rosuvastati 2019-09 Yes [id number] 10mg Take 1 Tsering n Calcium 2-01 tablet (10 Seyb old 10 MG oral 00:00: mg total) Tab 00 by mouth daily For cholestero l and triglyceri guillermina Cyclobenzap 2019-09 Yes [id number] 5mg Q.[id number] Take 0.5 -1 [facility] rine HCl 10 1-20 4 [id number] tablets Seybold MG oral Tab 00:00: 3D (5-10 mg 00 total) by mouth 3 times daily as needed for muscle spasms (in the neck) Cyclobenzap 2019-09 Yes [id number] 5mg Q.[id number] Take 0.5 -1 [facility] rine HCl 10 1-20 4 [id number] tablets Seybold MG oral Tab 00:00: 3D (5-10 mg 00 total) by mouth 3 times daily as needed for muscle spasms (in the neck) Cyclobenzap 2019-09 Yes [id number] 5mg Q.[id number] Take 0.5 -1 [facility] rine HCl 10 1-20 4 [id number] tablets Seybold MG oral Tab 00:00: 3D (5-10 mg 00 total) by mouth 3 times daily as needed for muscle spasms (in the neck) Cyclobenzap 2019-09 Yes [id number] 5mg Q.[id number] Take 0.5 -1 [facility] rine HCl 10 1-20 4 [id number] tablets Seybold MG oral Tab 00:00: 3D (5-10 mg 00 total) by mouth 3 times daily as needed for muscle spasms (in the neck) Cyclobenzap 2019-09 Yes [id number] 5mg Q.[id number] Take 0.5 -1 [facility] rine HCl 10 1-20 4 [id number] tablets Seybold MG oral Tab 00:00: 3D (5-10 mg 00 total) by mouth 3 times daily as needed for muscle spasms (in the neck) Cyclobenzap 2019-09 Yes [id number] 5mg Q.[id number] Take 0.5 -1 [facility] rine HCl 10 1-20 4 [id number] tablets Seybold MG oral Tab 00:00: 3D (5-10 mg 00 total) by mouth 3 times daily as needed for muscle spasms (in the neck) Cyclobenzap 2019-09 Yes [id number] 5mg Q.[id number] Take 0.5 -1 [facility] rine HCl 10 1-20 4 [id number] tablets Seybold MG oral Tab 00:00: 3D (5-10 mg - 00 total) by Externa mouth 3 l times daily as needed for muscle spasms (in the neck) Cyclobenzap 2019-09 Yes [id number] 5mg Q.[id number] Take 0.5 -1 [facility] rine HCl 10 1-20 4 [id number] tablets Seybold MG oral Tab 00:00: 3D (5-10 mg 00 total) by mouth 3 times daily as needed for muscle spasms (in the neck) Cyclobenzap 2019-09 Yes [id number] 5mg Q.[id number] Take 0.5 -1 [facility] rine HCl 10 1-20 4 [id number] tablets Seybold MG oral Tab 00:00: 3D (5-10 mg 00 total) by mouth 3 times daily as needed for muscle spasms (in the neck) Cyclobenzap 2019-09- No [id number] 5mg Q.[id number] Take 0. 5-1 Tsering rine HCl 10 1-20 -26 4 [id number] tablets Seybold MG oral Tab 00:00: 00:00 3D (5-10 mg - 00 :00 total) by Externa mouth 3 l times daily as needed for muscle spasms (in the neck) acetaZOLAMI 2020- No [id number] PLEASE SEE Tsering DE 250 MG 12-30 ATTACHED Seybo ld oral Tab 00:00: 00:00 FOR 00 :00 DETAILED DIRECTIONS Fesoterodin 2018-09 Yes [id number] 1{tbl} Take 1 Tsering e Fumarate 2-11 tablet by Seyb old (TOVI) 8 00:00: mouth MG oral 00 daily TABLET SR 24 HR Fesoterodin 2018-09 Yes [id number] 1{tbl} Take 1 Tsering e Fumarate 2-11 tablet by Seyb old (TOVIAZ) 8 00:00: mouth MG oral 00 daily TABLET SR 24 HR Fesoterodin 2018-09 Yes [id number] 1{tbl} Take 1 Tsering e Fumarate 2-11 tablet by Seyb old (TOVI) 8 00:00: mouth MG oral 00 daily TABLET SR 24 HR Fesoterodin 2018-09 Yes [id number] 1{tbl} Take 1 Tsering e Fumarate 2-11 tablet by Seyb old () 8 00:00: mouth MG oral 00 daily TABLET SR 24 HR Fesoterodin 2018-09 Yes [id number] 1{tbl} Take 1 Tsering e Fumarate 2-11 tablet by yb old () 8 00:00: mouth MG oral 00 daily TABLET SR 24 HR Fesoterodin 2018-09 Yes [id number] 1{tbl} Take 1 Tsering e Fumarate 2-11 tablet by yb old () 8 00:00: mouth MG oral 00 daily TABLET SR 24 HR Fesoterodin 2018-09 Yes [id number] 1{tbl} Take 1 Tsering e Fumarate 2-11 tablet by yb old () 8 00:00: mouth MG oral 00 daily TABLET SR 24 HR Fesoterodin 2018-09 Yes [id number] 1{tbl} Take 1 Tsering e Fumarate 2-11 tablet by yb old () 8 00:00: mouth - MG oral 00 daily Externa TABLET SR l 24 HR Fesoterodin 2018-09 Yes [id number] 1{tbl} Take 1 Tsering e Fumarate 2-11 tablet by yb old () 8 00:00: mouth MG oral 00 daily TABLET SR 24 HR Fesoterodin 2018-09- No [id number] 1{tbl} Take 1 Tsering e Fumarate 2-11 09-29 tablet by Enrike tran () 8 00:00: 00:00 mouth - MG oral 00 :00 daily Externa TABLET SR l 24 HR Immunizations Ordered Immunization Filled Immunization Date Status Commen ts Source Name Name Influenza Virus 2022-05-28 Completed [facility]ing Palomo cathleenold Vaccine, age 6 00:00:00 - External months and up Influenza Virus 2022-05-28 Completed Tsering connollycasey Vaccine, age 6 00:00:00 - External months and up Moderna COVID-19 Moderna COVID-19 2022-05-17 Completed Bivalent Adult Bivalent Adult 00:00:00 Booster Booster Covid-19 Vaccine 2022-03-16 Completed [facility] akur Moderna (Spikevax), 00:00:00 - Ext ernal Mrna-lnp, Robe Protein, Pf Covid-19 Vaccine 2022-03-16 Completed [facility] kaur Moderna (Spikevax), 00:00:00 - Ext ernal Mrna-lnp, Robe Protein, Pf Moderna COVID-19 Moderna COVID-19 2022-03-16 Completed Vaccine Vaccine 00:00:00 Influenza Virus 2021-06-18 Completed [facility]sering Se ybold Vaccine, age 6 00:00:00 months and up Influenza Virus 2021-06-18 Completed [facility]sering Se ybold Vaccine, age 6 00:00:00 months and up Influenza Virus 2021-06-18 Completed Tsering Se ybold Vaccine, age 6 00:00:00 months and up Influenza Virus 2021-06-18 Completed Tsering Se ybold Vaccine, age 6 00:00:00 months and up Influenza Virus 2021-06-18 Completed Tsering Se ybold Vaccine, age 6 00:00:00 months and up Influenza Virus 2021-06-18 Completed Tsering Se ybold Vaccine, age 6 00:00:00 months and up Influenza Virus 2021-06-18 Completed Tsering Se ybold Vaccine, age 6 00:00:00 - External months and up Influenza Virus 2021-06-18 Completed Tsering Se ybold Vaccine, age 6 00:00:00 - External months and up Influenza Virus 2021-06-18 Completed [facility]ing Se ybold Vaccine, Unspecified 00:00:00 - Ex ternal Formulation Moderna COVID-19 Moderna COVID-19 2021-04-22 Completed Vaccine Vaccine 00:00:00 Moderna COVID-19 Moderna COVID-19 2020-10-27 Completed Vaccine Vaccine 00:00:00 Covid-19 Vaccine 2020-10-27 Completed [facility] kaur (Moderna), Mrna-lnp, 00:00:00 Robe Protein, Pf, 100 Mcg/0.5ml,IM Covid-19 Vaccine 2020-10-27 Completed [facility] Wiseman eybold (Moderna), Mrna-lnp, 00:00:00 Robe Protein, Pf, 100 Mcg/0.5ml,IM Covid-19 Vaccine 2020-10-27 Completed [facility]sering kaur Moderna (Spikevax), 00:00:00 Mrna-lnp, Robe Protein, Pf Covid-19 Vaccine 2020-10-27 Completed [facility]sering kaur Moderna (Spikevax), 00:00:00 Mrna-lnp, Robe Protein, Pf Covid-19 Vaccine 2020-10-27 Completed Tsering Wiseman natasha Moderna (Spikevax), 00:00:00 Mrna-lnp, Robe Protein, Pf Covid-19 Vaccine 2020-10-27 Completed Tsering Wiseman natasha Moderna (Spikevax), 00:00:00 Mrna-lnp, Robe Protein, Pf Covid-19 Vaccine 2020-10-27 Completed Tsering torresmarc Moderna (Spikevax), 00:00:00 - Ext ernal Mrna-lnp, Robe Protein, Pf Covid-19 Vaccine 2020-10-27 Completed Tsering torresmarc Moderna (Spikevax), 00:00:00 - Ext ernal Mrna-lnp, Robe Protein, Pf Covid-19 Vaccine 2020-10-27 Completed Tserign kaur (Moderna), Mrna-lnp, 00:00:00 Robe Protein, Pf, 100 Mcg/0.5ml,IM Covid-19 Vaccine 2020-10-27 Completed Tsering Wiseman natasha (Moderna), Mrna-lnp, 00:00:00 Robe Protein, Pf, 100 Mcg/0.5ml,IM Moderna COVID-19 Moderna COVID-19 2020-09-29 Completed Vaccine Vaccine 00:00:00 Covid-19 Vaccine 2020-09-29 Completed Tsering kaur (Moderna), Mrna-lnp, 00:00:00 Robe Protein, Pf, 100 Mcg/0.5ml,IM Covid-19 Vaccine 2020-09-29 Completed Tseringenrike kaur (Moderna), Mrna-lnp, 00:00:00 Robe Protein, Pf, 100 Mcg/0.5ml,IM Covid-19 Vaccine 2020-09-29 Completed Tsering kaur Moderna (Spikevax), 00:00:00 Mrna-lnp, Robe Protein, Pf Covid-19 Vaccine 2020-09-29 Completed Tsering S melissamarc Moderna (Spikevax), 00:00:00 Mrna-lnp, Robe Protein, Pf Covid-19 Vaccine 2020-09-29 Completed Tsering S eybold Moderna (Spikevax), 00:00:00 Mrna-lnp, Robe Protein, Pf Covid-19 Vaccine 2020-09-29 Completed Tsering torresbold Moderna (Spikevax), 00:00:00 Mrna-lnp, Robe Protein, Pf Covid-19 Vaccine 2020-09-29 Completed Tsering Wiseman eybold Moderna (Spikevax), 00:00:00 - Ext ernal Mrna-lnp, Robe Protein, Pf Covid-19 Vaccine 2020-09-29 Completed Tsering torresbold Moderna (Spikevax), 00:00:00 - Ext ernal Mrna-lnp, Robe Protein, Pf Covid-19 Vaccine 2020-09-29 Completed Tsering torresbold (Moderna), Mrna-lnp, 00:00:00 Robe Protein, Pf, 100 Mcg/0.5ml,IM Covid-19 Vaccine 2020-09-29 Completed Tsering torresbold (Moderna), Mrna-lnp, 00:00:00 Robe Protein, Pf, 100 Mcg/0.5ml,IM Influenza Virus 2020-05-22 Completed Tsering Se ybold Vaccine, age 6 00:00:00 months and up Influenza Virus 2020-05-22 Completed Tsering Se ybold Vaccine, age 6 00:00:00 months and up Influenza Virus 2020-05-22 Completed Tsering Se ybold Vaccine, age 6 00:00:00 months and up Influenza Virus 2020-05-22 Completed Tsering Se ybold Vaccine, age 6 00:00:00 months and up Influenza Virus 2020-05-22 Completed Tsering Se ybold Vaccine, age 6 00:00:00 months and up Influenza Virus 2020-05-22 Completed Tsering Se ybold Vaccine, age 6 00:00:00 months and up Influenza Virus 2020-05-22 Completed Tsering Se ybold Vaccine, age 6 00:00:00 - External months and up Influenza Virus 2020-05-22 Completed Tsering Se ybold Vaccine, age 6 00:00:00 - External months and up Influenza Virus 2020-05-22 Completed Tsering Se ybold Vaccine, age 6 00:00:00 months and up Influenza Virus 2020-05-22 Completed Tsering Se ybold Vaccine, age 6 00:00:00 months and up Shingles IM 2020-01-15 Completed Tsering Seybol d (Shingrix) 00:00:00 Shingles IM 2020-01-15 Completed Tsering Seybol d (Shingrix) 00:00:00 Shingles IM 2020-01-15 Completed Tsering Seybol d (Shingrix) 00:00:00 Shingles IM 2020-01-15 Completed Tsering Seybol d (Shingrix) 00:00:00 Shingles IM 2020-01-15 Completed Tsering Seybol d (Shingrix) 00:00:00 Shingles IM 2020-01-15 Completed Tsering Seybol d (Shingrix) 00:00:00 Shingles IM 2020-01-15 Completed Tsering Seybol d (Shingrix) 00:00:00 - External Shingles IM 2020-01-15 Completed Tsering Seybol d (Shingrix) 00:00:00 - External Shingles IM 2020-01-15 Completed Tsering Seybol d (Shingrix) 00:00:00 Shingles IM 2020-01-15 Completed Tsering Seybol d (Shingrix) 00:00:00 Shingles IM 2019-09-27 Completed Tsering Seybol d (Shingrix) 00:00:00 Influenza Virus 2019-09-27 Completed Tsering Se ybold Vaccine, No Preserv, 00:00:00 age 6 months and up Shingles IM 2019-09-27 Completed Tsering Seybol d (Shingrix) 00:00:00 Influenza Virus 2019-09-27 Completed Tsering Se ybold Vaccine, No Preserv, 00:00:00 age 6 months and up Shingles IM 2019-09-27 Completed Tsering Seybol d (Shingrix) 00:00:00 Influenza Virus 2019-09-27 Completed Tsering Se ybold Vaccine, No Preserv, 00:00:00 age 6 months and up Shingles IM 2019-09-27 Completed Tsering Seybol d (Shingrix) 00:00:00 Influenza Virus 2019-09-27 Completed Tsering Se ybold Vaccine, No Preserv, 00:00:00 age 6 months and up Shingles IM 2019-09-27 Completed Tsering Seybol d (Shingrix) 00:00:00 Influenza Virus 2019-09-27 Completed Tsering Se ybold Vaccine, No Preserv, 00:00:00 age 6 months and up Shingles IM 2019-09-27 Completed Tsering Seybol d (Shingrix) 00:00:00 Influenza Virus 2019-09-27 Completed Tsering Se ybold Vaccine, No Preserv, 00:00:00 age 6 months and up Shingles IM 2019-09-27 Completed Tsering Seybol d (Shingrix) 00:00:00 - External Influenza Virus 2019-09-27 Completed Tsering Se ybold Vaccine, No Preserv, 00:00:00 - Ex ternal age 6 months and up Shingles IM 2019-09-27 Completed Tsering Seybol d (Shingrix) 00:00:00 - External Influenza Virus 2019-09-27 Completed Tsering Se ybold Vaccine, No Preserv, 00:00:00 - Ex ternal age 6 months and up Shingles IM 2019-09-27 Completed Tsering Seybol d (Shingrix) 00:00:00 Influenza Virus 2019-09-27 Completed Tsering Se ybold Vaccine, No Preserv, 00:00:00 age 6 months and up Shingles IM 2019-09-27 Completed Tsering Seybol d (Shingrix) 00:00:00 Influenza Virus 2019-09-27 Completed Tsering Se ybold Vaccine, No Preserv, 00:00:00 age 6 months and up Influenza Virus 2019-05-05 Completed Tsering Se ybold Vaccine, Unspecified 00:00:00 Formulation Influenza Virus 2019-05-05 Completed Tsering Se ybold Vaccine, Unspecified 00:00:00 Formulation Influenza Virus 2019-05-05 Completed Tsering Se ybold Vaccine, Unspecified 00:00:00 Formulation Influenza Virus 2019-05-05 Completed Tsering Se ybold Vaccine, Unspecified 00:00:00 Formulation Influenza Virus 2019-05-05 Completed Tsering Se ybold Vaccine, Unspecified 00:00:00 Formulation Influenza Virus 2019-05-05 Completed Tsering Se ybold Vaccine, Unspecified 00:00:00 Formulation Influenza Virus 2019-05-05 Completed Tsering Se ybold Vaccine, Unspecified 00:00:00 - Ex ternal Formulation Influenza Virus 2019-05-05 Completed Tsering Se ybold Vaccine, Unspecified 00:00:00 - Ex ternal Formulation Influenza Virus 2019-05-05 Completed Tsering milner Vaccine, Unspecified 00:00:00 Formulation Influenza Virus 2019-05-05 Completed Tsering milner Vaccine, Unspecified 00:00:00 Formulation Tdap- (Boostrix, 2015-09-23 Completed Tsering S eybold Adacel) 00:00:00 Tdap- (Boostrix, 2015-09-23 Completed Tsering S eybold Adacel) 00:00:00 Tdap- (Boostrix, 2015-09-23 Completed Tsering S eybold Adacel) 00:00:00 Tdap- (Boostrix, 2015-09-23 Completed Tsering S eybold Adacel) 00:00:00 Tdap- (Boostrix, 2015-09-23 Completed Tsering S eybold Adacel) 00:00:00 Tdap- (Boostrix, 2015-09-23 Completed Tsering S eybold Adacel) 00:00:00 Tdap- (Boostrix, 2015-09-23 Completed Tsering S eybold Adacel) 00:00:00 - External Tdap- (Boostrix, 2015-09-23 Completed Tsering S eybold Adacel) 00:00:00 - External Tdap- (Boostrix, 2015-09-23 Completed Tsering S eybold Adacel) 00:00:00 Tdap- (Boostrix, 2015-09-23 Completed Tsering S eybold Adacel) 00:00:00 Vital Signs Vital Name Observation Time Observation Value Comments Source Systolic blood 2022-09-29 20:06:00 128 mm[Hg] Tsering Palomoybold - pressure External Diastolic blood 2022-09-29 20:06:00 70 mm[Hg] Azeb gibbons Seybcasey - pressure External Heart rate 2022-09-29 20:06:00 100 /min Tsering torresbokinga - External Body temperature 2022-09-29 20:06:00 37.44 Analia Roslyn ey Seybold - External Respiratory rate 2022-09-29 20:06:00 20 /min Roslyn torres Seybold - External Body height 2022-09-29 20:06:00 157.5 cm Tsering Wiseman eybold - External Body weight 2022-09-29 20:06:00 102.683 kg Tsering Wiseman eybold - External BMI 2022-09-29 20:06:00 41.40 kg/m2 Tsering Wiseman eybold - External Oxygen saturation in 2022-09-29 20:06:00 98 /min Tsering Seybold - Arterial blood by External Pulse oximetry Systolic blood 2022-07-15 19:59:00 120 mm[Hg] Tsering Seybold - pressure External Diastolic blood 2022-07-15 19:59:00 76 mm[Hg] Karlosse y Seybold - pressure External Heart rate 2022-07-15 19:59:00 98 /min Tsering Wiseman eybold - External Body temperature 2022-07-15 19:59:00 37.28 Analia Roslyn ey Seybold - External Respiratory rate 2022-07-15 19:59:00 18 /min Roslyn ey Seybold - External Body height 2022-07-15 19:59:00 157.5 cm Tsering Wiseman eybold - External Body weight 2022-07-15 19:59:00 103.42 kg Tsering Wiseman eybold - External BMI 2022-07-15 19:59:00 41.70 kg/m2 Tsering Wiseman eybold - External Systolic blood 2021-10-13 19:46:00 132 mm[Hg] Tsering Seybold pressure Diastolic blood 2021-10-13 19:46:00 80 mm[Hg] Kelse y Seybold pressure Systolic blood 2021-08-13 23:14:00 125 mm[Hg] Tsering Seybold pressure Diastolic blood 2021-08-13 23:14:00 75 mm[Hg] Kelse y Seybold pressure Heart rate 2021-08-13 21:20:00 89 /min Tsering Wiseman eybold Body temperature 2021-08-13 21:20:00 36.89 Analia Roslyn ey Seybold Respiratory rate 2021-08-13 21:20:00 18 /min Roslyn ey Seybold Body height 2021-08-13 21:20:00 157.5 cm Tsering Wiseman eybold Body weight 2021-08-13 21:20:00 86.694 kg Tsering Wiseman eybold BMI 2021-08-13 21:20:00 34.96 kg/m2 Tsering S eybold Heart rate 2021-06-18 18:16:00 60 /min Tsering S eybold Body temperature 2021-06-18 18:16:00 36.61 Analia Roslyn ey Seybold Respiratory rate 2021-06-18 18:16:00 16 /min Roslyn ey Seybold Body height 2021-06-18 18:16:00 157.5 cm Tsering S eybold Body weight 2021-06-18 18:16:00 87.091 kg Tsering Wiseman eybold BMI 2021-06-18 18:16:00 35.12 kg/m2 Tsering Wiseman eybold Systolic blood 2021-06-18 18:16:00 122 mm[Hg] Tsering Seybold pressure Diastolic blood 2021-06-18 18:16:00 74 mm[Hg] Kelse y Seybold pressure Systolic blood 2021-05-21 20:05:00 125 mm[Hg] Tsering Seybold pressure Diastolic blood 2021-05-21 20:05:00 82 mm[Hg] Kelse y Seybold pressure Heart rate 2021-05-21 20:05:00 102 /min Tsering Wiseman eybold Body temperature 2021-05-21 20:05:00 36.72 Analia Roslyn ey Seybold Respiratory rate 2021-05-21 20:05:00 18 /min Roslyn ey Seybold Body height 2021-05-21 20:05:00 157.5 cm Tsering torresbold Body weight 2021-05-21 20:05:00 87.091 kg Tsering Wiseman eybold BMI 2021-05-21 20:05:00 35.12 kg/m2 Tsering torresbold Oxygen saturation in 2021-05-21 20:05:00 96 /min Tsering Smith Arterial blood by Pulse oximetry Procedures This patient has no known procedures. Encounters Start End Encounter Admission Attending Care Care Encounter Source Date/Time Date/Time Type Type Clinicians Facility Department ID 2022-10-31 2022-10-31 Outpatient KOLBY SEWELL [id number] [facility] 14:00:00 14:00:00 Seybol d 2022-10-17 2022-10-17 Outpatient JOE TSERING LEAL [id number] [facility] 14:00:00 14:00:00 JAESOON Seybol d 2022-10-11 2022-10-11 Outpatient MELODIE KOLBY LEAL [id number] [facility] 00:00:00 00:00:00 Seybol d 2022-10-10 2022-10-10 Outpatient TSERING LEAL [id number] [facility] 14:00:00 14:00:00 Seybol d 2022-10-10 2022-10-10 Outpatient TSERING LEAL [id number] [facility] 10:00:00 10:00:00 Seybol d 2022-10-10 2022-10-10 Outpatient LAB53 TSERING LEAL [id number] [facility] 09:10:00 09:10:00 Seybol d 2022-10-09 2022-10-09 Outpatient KOLBY SEWELL [id number] [facility] 00:00:00 00:00:00 Seybol d 2022-10-05 2022-10-05 Outpatient VANGIEESTHER Herrera [id number] [facility] 00:00:00 00:00:00 Seybol d 2022-09-29 2022-09-29 Outpatient EZEKIEL TSERING LEAL [id number] [facility] 14:30:00 14:30:00 PRISCA Seybol d 2022-09-27 2022-09-27 Outpatient ESTHER VENCES [id number] [facility] 00:00:00 00:00:00 Seybol d 2022-09-23 2022-09-23 Outpatient KOLBY SEWELL [id number] [facility] 00:00:00 00:00:00 Seybol d 2022-09-23 2022-09-23 Outpatient VANGIEESTHER Herrera [id number] [facility] 00:00:00 00:00:00 Seybol d 2022-09-23 2022-09-23 Outpatient VANGIEESTHER Herrera [id number] [facility] 00:00:00 00:00:00 Seybol d 2022-08-112022-08-11 Outpatient SIERRA TSERING LEAL [id number] Tsering 00:00:00 00:00:00 MD KRYSTLE Seybol d 2022-08-11 2022-08-11 Outpatient KOLBY SEWELL [id number] Tsering 00:00:00 00:00:00 Seybol d 2022-07-15 2022-07-15 Outpatient ESTHER VENCES [id number] Tsering 14:15:00 14:15:00 Seybol d 2022-07-04 2022-07-04 Outpatient ESTHER VENCES [id number] Tsering 00:00:00 00:00:00 Seybol d 2022-05-28 2022-05-28 Outpatient FLU, RICKY LEAL [id number] Tsering 10:30:00 10:30:00 Seybol d 2022-05-19 2022-05-19 Outpatient MORTEZA, KRYSTIAN LEAL [id number] Tsering 14:45:00 14:45:00 Seybol d 2022-05-17 2022-05-17 Outpatient GCCOVIDV GCCOVIDV [id number] GCCOVID 00:00:00 00:00:00 V 2022-04-07 2022-04-07 Outpatient CHITSAZZADE TSERING LEAL [id number] Tsering 14:00:00 14:00:00 H, TESS Seybol d 2022-03-25 2022-03-25 Outpatient TSERING BECKER [id number] Tsreing 16:45:00 16:45:00 SHANNON Seybol d 2022-03-25 2022-03-25 Outpatient COVID-MODER TSERING LEAL [id number] Tsering 14:20:00 14:20:00 NA VACC, Seybo ld MALDEN BRIDGE 2022-03-17 2022-03-17 Outpatient TSERING APODACA [id number] Tsering 00:00:00 00:00:00 MUHAMMED Seybo ld 2022-03-16 2022-03-16 Outpatient COVID-MODER TSERING LEAL [id number] Tsering 16:00:00 16:00:00 NA VACC, Seybo ld CLEAR 2022-03-16 2022-03-16 Outpatient GCCOVIDV GCCOVIDV [id number] GCCOVID 00:00:00 00:00:00 V 2022-03-14 2022-03-14 Outpatient LAB39 TSERING LEAL [id number] [place] 10:15:00 10:15:00 Seybol d 2022-03-14 2022-03-14 Office KRYSTIAN Becker [id number] [place] 09:45:00 10:00:00 Visit [facility] [id number] Seybold [id number] 2022-03-11 2022-03-11 Office [facility] [id number] [place] 13:00:00 13:20:00 Visit Britnay [facility] [id number] Seybold AND [id number] DIAGNOSTI [id number] [place] 0 2022-03-11 2022-03-11 Outpatient TSERING REAL [id number] [place] 08:30:00 08:30:00 FANY Seybol d 2022-03-02 2022-03-02 Outpatient ESTHER VENCES [id number] [place] 00:00:00 00:00:00 Seybol d 2022-02-10 2022-02-10 Outpatient CHITOVIDIO LEAL [id number] [place] 16:00:00 16:00:00 H, TESS Seybol d 2022-01-21 2022-01-21 Telemedici KRYSTIAN DAMICO [id number] [place] 15:30:00 15:30:00 [facility] [id number] Se ybold [id number] 2022-01-09 2022-01-09 Outpatient RAS GARRIDO [id number] [place] 00:00:00 00:00:00 Seybol d 2022-01-06 2022-01-06 Outpatient RAS GARRIDO [id number] [place] 10:01:00 10:01:00 Seybol d 2022-01-06 2022-01-06 Outpatient MARQUISTSERING [id number] [place] 00:00:00 00:00:00 JUD Seybol d 2022-01-04 2022-01-04 Outpatient SWAB, CK TSERING LEAL [id number] Tser[place] 16:00:00 16:00:00 Seybol d 2022-01-04 2022-01-04 Outpatient TRED53 TSERING LEAL [id number] [place] 15:00:00 15:00:00 Seybol d 2021-12-31 2021-12-31 Outpatient RAS GARRIDO [id number] [place] 00:00:00 00:00:00 Seybol d 2021-12-24 2021-12-24 Outpatient TSERING DAMICO [id number] [place] 13:00:00 13:00:00 TORRES Seybol d 2021-12-23 2021-12-23 Outpatient SIERRA LEAL [id number] [place] 00:00:00 00:00:00 MD KRYSTLE Seybol d 2021-12-08 2021-12-08 Outpatient SIERRA LEAL [id number] [place] 00:00:00 00:00:00 MD KRYSTLE Seybol d 2021-12-07 2021-12-07 Outpatient SWAB, CHANTE LEAL [id number] Tser[place] 16:00:00 16:00:00 Seybol d 2021-12-06 2021-12-06 Outpatient SEWELLKOLBY [id number] [place] 09:15:00 09:15:00 Seybol d 2021-12-04 2021-12-04 Outpatient RAS GARRIDO [id number] [place] 00:00:00 00:00:00 Seybol d 2021-12-03 2021-12-03 Outpatient RAS GARRIDO [id number] [place] 00:00:00 00:00:00 Seybol d 2021-12-01 2021-12-01 Outpatient TSERING LEAL [id number] [place] 11:00:00 11:00:00 Seybol d 2021-12-01 2021-12-01 EMG KRYSTIAN Chavez [id number] Tser[place] 09:00:00 09:30:00 Encounter [facility] [id number] Seybold [id number] 2021-12-01 2021-12-01 Outpatient KOLBY SEWELL [id number] [place] 00:00:00 00:00:00 Seybol d 2021-11-19 2021-11-19 Outpatient ESTHER VENCES [id number] [place] 00:00:00 00:00:00 Seybol d 2021-11-13 2021-11-13 Telemedici KOLBY SEWELL [id number] [place] 09:15:00 09:15:00 [facility] [id number] Se ybold [id number] 2021-10-25 2021-10-25 Outpatient TSERING LEAL [id number] Tser[place] 10:40:00 10:40:00 Seybol d 2021-10-25 2021-10-25 Outpatient TSERING LEAL [id number] Tser[place] 09:30:00 09:30:00 Seybol d 2021-10-13 2021-10-13 Office Ras Garrido [id number] [place] 13:40:00 13:50:00 Visit [facility] [id number] Se ybold [id number] 2021-10-13 2021-10-13 Outpatient TAMIA SARGENT [id number] [place] 00:00:00 00:00:00 Seybol d 2021-10-11 2021-10-11 Outpatient TAMIA SARGENT [id number] [place] 10:00:00 10:00:00 Seybol d 2021-10-11 2021-10-11 Outpatient TSERING LEAL [id number] Tser[place] 00:00:00 00:00:00 Seybol d 2021-10-03 2021-10-03 Outpatient ARIE, TAMIA TSERING LEAL [id number] [place] 00:00:00 00:00:00 Seybol d 2021-10-02 2021-10-02 Outpatient LAB53 TSERING LEAL [id number] [place]ser[place] 10:10:00 10:10:00 Seybol d 2021-09-28 2021-09-28 Outpatient ARIE, TAMIA TSERING LEAL [id number] [place] 00:00:00 00:00:00 Seybol d 2021-09-28 2021-09-28 Outpatient ARIE, TAMIAShai LEAL [id number] [place] 00:00:00 00:00:00 Seybol d 2021-09-15 2021-09-15 Outpatient VANGIE, ESTHER LEAL [id number] [place] 00:00:00 00:00:00 Seybol d 2021-09-13 2021-09-13 Outpatient VANGIE, ESTHERJuana LEAL 105 [id number] [place] 00:00:00 00:00:00 Seybol d 2021-08-20 2021-08-20 Outpatient ARIE, TAMIA TSERING LEAL [id number] [place] 14:00:00 14:00:00 Seybol d 2021-08-17 2021-08-17 Telemedici TAMIA ASRGENT RICKY [id number] Tsering 14:20:00 14:20:00 [facility] [id number] ybold [id number] 2021-08-17 2021-08-17 Outpatient RICARDOTSERING [id number] Tser[place] 00:00:00 00:00:00 BALAGURU Seybo ld 2021-08-17 2021-08-17 Outpatient KOLBY SEWELL [id number] [place] 00:00:00 00:00:00 Seybol d 2021-08-17 2021-08-17 Outpatient MIRIAMSEYONKelvin LEAL [id number] [place] 00:00:00 00:00:00 MD KRYSTLE Seybol d 2021-08-17 2021-08-17 Outpatient TSERING LEAL [id number] Tser[place] 00:00:00 00:00:00 Seybol d 2021-08-13 2021-08-13 Office Kolby Sewell 1.2.840.114 [id number] Tser[place] 15:00:00 15:30:00 Visit HERNANDEZ [id number] Se ybold [id number] 2021-08-13 2021-08-13 Outpatient LAB53 TSERING LEAL [id number] Tser[place] 13:05:00 13:05:00 Seybol d 2021-07-23 2021-07-23 Outpatient TAMIA SARGENT [id number] [place] 14:00:00 14:00:00 Seybol d 2021-07-22 2021-07-22 Outpatient TSERING SILVA [id number] [place]ser[place] 00:00:00 00:00:00 BALAGURU Seybo ld 2021-07-08 2021-07-08 Outpatient ESTHER VENCES [id number] [place] 13:30:00 13:30:00 Seybol d 2021-06-22 2021-06-22 Outpatient ESTHER VENCES [id number] [place] 15:15:00 15:15:00 Seybol d 2021-06-18 2021-06-18 Office Esther Vences 1.2.840.114 [id number] [place] 13:02:36 13:17:36 Visit [facility] [id number] Se ybold [id number] 2021-06-18 2021-06-18 Outpatient KRYSTIAN PRO [id number] [place]ser[place] 12:30:00 12:30:00 Seybol d 2021-05-21 2021-05-21 Office Kehinde Watkins 1.2.840.114 [id number] [place] 15:00:59 15:15:59 Visit Josue HERNANDEZ [id number] Se ybold [id number] 2021-04-22 2021-04-22 Outpatient GCCOVIDV GCCOVIDV [id number] GCCOVID 00:00:00 00:00:00 V 2021-04-09 2021-04-09 Outpatient ESTHER VENCES [id number] [place] 00:00:00 00:00:00 Seybol d 2021-04-07 2021-04-07 Outpatient JAQCUELIN ELIZALDE [id number] [place] 14:15:00 14:15:00 Seybol d 2021-03-11 2021-03-11 Outpatient ESTHER VENCES [id number] [place] 00:00:00 00:00:00 Seybol d 2021-03-02 2021-03-02 Outpatient ESTHER VENCES [id number] [place] 00:00:00 00:00:00 Seybol d 2020-10-27 2020-10-27 Outpatient GCCOVIDV GCCOVIDV [id number] GCCOVID 00:00:00 00:00:00 V 2020-09-29 2020-09-29 Outpatient GCCOVIDV GCCOVIDV [id number] GCCOVID 00:00:00 00:00:00 V Results This patient has no known results.
[2022-10-17 12:41] LABS: Absolute Lymphocytes (CBC) 2.3 K/uL (0.7-4.9); Hematocrit 33.7 % (36.0-45.0); Lymphocytes % 28.2 % (15.3-44.8); MCV 71.9 fL (80-100); MPV 8.9 fL (7.6-11.3); RBC Red Blood Cell Count 4.68 M/uL (3.86-4.86)
[2022-10-17 12:43] LABS: Protime INR 0.99
--- NOTE | 2022-10-17 13:21 | RAD REPORT ---
EXAM DESCRIPTION: Amparo Single View10/17/2022 12:41 pm CLINICAL HISTORY: Chest pain COMPARISON: none FINDINGS: The lungs appear clear of acute infiltrate. The heart is normal size IMPRESSION: No acute abnormalities displayed
[2022-10-17 13:23] LABS: Ferritin 4.7 ng/mL (8-388); Potassium 3.9 mmol/L (3.5-5.1); Troponin High Sensitivity 4.2 pg/mL (<58.9)
--- NOTE | 2022-10-17 14:23 | ER ---
Nurse's Notes [facility] Name: Jodi Molina Age: 62 yrs Sex: Female : 1960 Arrival Date: 10/17/2022 Time: 11:54 Bed 23 Private MD: Diagnosis: Chest pain, unspecified;Dyspnea, unspecified;Iron deficiency anemia, unspecified Presentation: 10/17 11:57 Chief complaint: Patient states: chest pain, SOB on exertion since beginning of September , had labs drawn and was told her blood levels were low and to come to the ER. Coronavirus screen: At this time, the client does not indicate any symptoms associated with coronavirus-19. Ebola Screen: Patient negative for fever greater than or equal to 101.5 degrees Fahrenheit, and additional compatible Ebola Virus Disease symptoms Patient denies exposure to infectious person. Patient denies travel to an Ebola-affected area in the 21 days before illness onset. No symptoms or risks identified at this time. Initial Sepsis Screen: Does the patient meet any 2 criteria? No. Patient's initial sepsis screen is negative. Does the patient have a suspected source of infection? No. Patient's initial sepsis screen is negative. Risk Assessment: Do you want to hurt yourself or someone else? Patient reports no desire to harm self or others. Onset of symptoms was September 2022. 11:57 Method Of Arrival: Ambulatory 11:57 Acuity: GUIDO 3 iw Triage Assessment: 13:11 General: Appears. mb9 - Family history:: not pertinent. - Hospitalizations: : No recent hospitalization is reported. Screenin:02 [facility] ED Fall Risk Assessment (Adult) History of falling in the last 3 months, mb9 including since admission No falls in past 3 months (0 pts) Confusion or Disorientation No (0 pts) Intoxicated or Sedated No (0 pts) Impaired Gait No (0 pts) Mobility Assist Device Used No (0 pt) Altered Elimination No (0 pt) Score/Fall Risk Level 0 - 2 = Low Risk Oriented to surroundings, Maintained a safe environment, Educated pt \T\ family on fall prevention, incl call for assistance when getting out of bed. Abuse screen: Denies threats or abuse. Nutritional screening: No deficits noted. Tuberculosis screening: No symptoms or risk factors identified. Assessment: 12:15 General: Appears in no apparent distress. comfortable, Behavior is calm, cooperative, mb9 appropriate for age. 12:15 Pain: Complains of pain in chest Pain does not radiate. Pain currently is 6 out of 10 mb9 on a pain scale. Quality of pain is described as aching. Neuro: Mcknight Agitation-Sedation Scale (RASS): 0 - Alert and Calm Level of Consciousness is awake, alert, obeys commands, Oriented to person, place, time, situation, Appropriate for age. Cardiovascular: Heart tones S1 S2 present Capillary refill < 3 seconds is brisk Patient's skin is warm and dry. Rhythm is regular. Respiratory: Reports shortness of breath at rest on exertion since September Airway is patent Respiratory effort is even, unlabored, Respiratory pattern is regular, symmetrical, Breath sounds are clear bilaterally. GI: Abdomen is round non-distended, Bowel sounds present X 4 quads. Abd is soft and non tender X 4 quads. : No signs and/or symptoms were reported regarding the genitourinary system. EENT: No signs and/or symptoms were reported regarding the EENT system. Derm: Skin is pink, warm \T\ dry. Musculoskeletal: Range of motion: intact in all extremities. 13:15 Reassessment: Patient and/or family updated on plan of care and expected duration. Pain mb9 level reassessed. Patient is alert, oriented x 3, equal unlabored respirations, skin warm/dry/pink. Patient states feeling better. Patient states symptoms have improved. 14:50 Reassessment: No changes from previously documented assessment. Patient and/or family mb9 updated on plan of care and expected duration. Pain level reassessed. Patient is alert, oriented x 3, equal unlabored respirations, skin warm/dry/pink. 18:14 Reassessment: attempted to call report to admitting nurse. mb9 Vital Signs: 12:00 BP 175 / 89; Pulse 101; Resp 19; Pulse Ox 99% on R/A; iw 12:02 Temp 98.5(O); mb9 13:13 BP 130 / 72; Pulse 87; Resp 23; Pulse Ox 97% on R/A; Weight 102.06 kg; Height 5 ft. 2 mb9 in. (157.48 cm); 14:50 BP 171 / 92; Pulse 83; Resp 20; Pulse Ox 100% on R/A; mb9 13:13 Body Mass Index 41.15 (102.06 kg, 157.48 cm) mb9 ED Course: 11:54 Patient arrived in ED. am2 11:54 Joey Angel MD is Attending Physician. rn 11:54 Margareth León, RN is Primary Nurse. mb9 11:58 Triage completed. iw 11:58 Arm band placed on. iw 12:00 Placed in gown. Bed in low position. Call light in reach. Side rails up X 1. Client mb9 placed on continuous cardiac and pulse oximetry monitoring. NIBP monitoring applied. monitoring manager on. 12:31 B12 Sent. mb9 12:31 TRANSFERRIN SAT/IRON BINDING Sent. mb9 12:31 Ferritin Sent. mb9 12:31 Iron Level Sent. mb9 12:31 Retic Count Sent. mb9 12:31 Type And Screen Sent. mb9 12:31 Basic Metabolic Panel Sent. mb9 12:31 No provider procedures requiring assistance completed. Inserted saline lock: 20 gauge mb9 in left antecubital area, using aseptic technique. 12:31 EKG done, by ED staff, reviewed by Joey Angel MD. mb9 12:32 NT PRO-BNP Sent. mb9 12:32 CBC with Diff Sent. mb9 12:32 PT-INR Sent. mb9 12:32 Troponin HS Sent. mb9 14:22 Van Nolasco is Hospitalizing Provider. rn 14:24 SARS RAPID Sent. mb9 18:25 Patient admitted, IV remains in place. mb9 Administered Medications: 16:50 Drug: Aspirin Chewable Tablet 324 mg Route: PO; mb9 Medication: 12:02 VIS not applicable for this client. mb9 Outcome: 14:23 Decision to Hospitalize by Provider. rn 18:24 Admitted to Med/surg accompanied by tech, via wheelchair, room 210, with chart, Report mb9 called to YULIYA Cagle 18:24 Condition: stable 19:02 Patient left the ED. mb9 Signatures: Juliann Gary, RN YULIYA Joey Angel MD MD rn Moreno, Amanda am2 Margareth León, YULIYA kimble
--- NOTE | 2022-10-17 14:23 | EDPHYS ---
Physician Documentation [facility] Name: Jodi Molina Age: 62 yrs Sex: Female : 1960 Arrival Date: 10/17/2022 Time: 11:54 Bed 23 Private MD: ED Physician Joey Angel HPI: 10/17 14:24 This 62 yrs old Female presents to ER via Ambulatory with complaints of Chest Pain, rn Abnormal Lab Results. 14:24 The patient or guardian reports chest pain that is located primarily in the substernal rn area. 14:24 Onset: 2 week(s) ago. The pain does not radiate. Associated signs and symptoms: rn Pertinent positives: lightheadedness, palpitations, shortness of breath, Pertinent negatives: abdominal pain. The chest pain is described as a heaviness, a pressure. Duration: The patient or guardian reports multiple episodes, that are intermittent. Modifying factors: The symptoms are alleviated by nothing. the symptoms are aggravated by exertion. Severity of pain: At its worst the pain was moderate in the emergency department the pain has improved. The patient has not experienced similar symptoms in the past. The patient has been recently seen by a physician:. Pt reports intermittent chest pain, worse with exertion, assoc with exertional dyspnea. Sent by PCP for evaluation and chest pain. Reports long famhx of CHF and early cardiac . Last stress test 6 years ago. No GI bleed. . - Family history:: not pertinent. - Hospitalizations: : No recent hospitalization is reported. ROS: 14:24 Constitutional: Negative for fever, chills, and weight loss, Eyes: Negative for injury, rn pain, redness, and discharge, Neck: Negative for injury, pain, and swelling, Cardiovascular: + chest pain Respiratory: + sob Abdomen/GI: Negative for abdominal pain, nausea, vomiting, diarrhea, and constipation, MS/Extremity: Negative for injury and deformity, Skin: Negative for injury, rash, and discoloration, Neuro: Negative for headache, weakness, numbness, tingling, and seizure. Exam: 14:24 Constitutional: This is a well developed, well nourished patient who is awake, alert, rn and in no acute distress. Head/Face: Normocephalic, atraumatic. Cardiovascular: Regular rate and rhythm. No pulse deficits. Respiratory: + mild tachypnea, no retractions Abdomen/GI: soft, non-tender Skin: Warm, dry MS/ Extremity: Pulses equal, no cyanosis. Neurovascular intact. Full, normal range of motion. Equal circumference. Neuro: Awake and alert, GCS 15 16:42 ECG was reviewed by the Attending Physician. rn Vital Signs: 12:00 BP 175 / 89; Pulse 101; Resp 19; Pulse Ox 99% on R/A; iw 12:02 Temp 98.5(O); mb9 13:13 BP 130 / 72; Pulse 87; Resp 23; Pulse Ox 97% on R/A; Weight 102.06 kg; Height 5 ft. 2 mb9 in. (157.48 cm); 14:50 BP 171 / 92; Pulse 83; Resp 20; Pulse Ox 100% on R/A; mb9 13:13 Body Mass Index 41.15 (102.06 kg, 157.48 cm) mb9 MDM: 11:54 Patient medically screened. rn 10/17 12:13 Order name: Basic Metabolic Panel rn 10/17 12:13 Order name: CBC with Diff rn 10/17 12:13 Order name: NT PRO-BNP rn 10/17 12:13 Order name: PT-INR rn 10/17 12:13 Order name: Troponin HS rn 10/17 12:13 Order name: B12 rn 10/17 12:13 Order name: Ferritin rn 10/17 12:13 Order name: Iron Level rn 10/17 12:13 Order name: Retic Count rn 10/17 12:13 Order name: TRANSFERRIN SAT/IRON BINDING rn 10/17 12:13 Order name: Type And Screen rn 10/17 12:42 Order name: CBC with Automated Diff; Complete Time: 13:55 EDMS 10/17 12:42 Order name: Retic Count; Complete Time: 13:55 EDMS 10/17 12:44 Order name: Protime (+INR); Complete Time: 13:55 EDMS 10/17 13:14 Order name: Type and Screen; Complete Time: 13:55 EDMS 10/17 13:23 Order name: Basic Metabolic Panel; Complete Time: 13:55 EDMS 10/17 13:23 Order name: Troponin High Sensitivity; Complete Time: 13:55 EDMS 10/17 13:23 Order name: NT PRO-BNP; Complete Time: 13:55 EDMS 10/17 13:23 Order name: Transferrin Sat/Iron Binding; Complete Time: 13:55 EDMS 10/17 13:23 Order name: Ferritin; Complete Time: 13:55 EDMS 10/17 13:23 Order name: Vitamin B12 Level; Complete Time: 13:55 EDMS 10/17 13:50 Order name: ABO/RH no charge; Complete Time: 13:55 EDMS 10/17 14:20 Order name: SARS RAPID mb9 10/17 15:04 Order name: SARS-COV-2 Antigen Rapid EDMS 10/17 16:55 Order name: Urine Dipstick-Ancillary EDMS 10/17 16:58 Order name: Lipid Profile EDMS 10/17 17:03 Order name: Hemoglobin A1c EDMS 10/17 17:04 Order name: Phosphorus EDMS 10/17 17:04 Order name: T4 Free EDMS 10/17 17:04 Order name: Magnesium EDMS 10/17 12:13 Order name: XRAY Chest (1 view) rn 10/17 12:13 Order name: EKG; Complete Time: 12:14 rn 10/17 12:13 Order name: Cardiac monitoring; Complete Time: 12:23 rn 10/17 12:13 Order name: EKG - Nurse/Tech; Complete Time: 12:23 rn 10/17 12:13 Order name: IV Saline Lock; Complete Time: 12:23 rn 10/17 12:13 Order name: Labs collected and sent; Complete Time: 12:24 rn 10/17 12:13 Order name: O2 Per Protocol; Complete Time: 12:23 rn 10/17 12:13 Order name: O2 Sat Monitoring; Complete Time: 12:24 rn 10/17 13:21 Order name: RAD; Complete Time: 13:55 EDMS 10/17 17:04 Order name: Thyroid Stimulating Hormone EDOH EC:42 Rate is 84 beats/min. Rhythm is regular. QRS Jasper is Normal. TX interval is normal. QRS rn interval is normal. QT interval is normal. No Q waves. T waves are Normal. No ST changes noted. Clinical impression: Normal ECG. Interpreted by me. Reviewed by me. Administered Medications: 16:50 Drug: Aspirin Chewable Tablet 324 mg Route: PO; mb9 Disposition Summary: 10/17/22 14:23 Hospitalization Ordered Hospitalization Status: Observation rn Provider: Baidoo, Van rn Location: Telemetry/MedSurg (observation) rn Condition: Stable rn Problem: new rn Symptoms: have improved rn Bed/Room Type: Standard rn Room Assignment: 210(10/17/22 17:38) dw Diagnosis - Chest pain, unspecified rn - Dyspnea, unspecified rn - Iron deficiency anemia, unspecified rn Forms: - Medication Reconciliation Form rn - SBAR form rn Signatures: Dispatcher [employer] Narcisa Sun RN RN Joey Bush MD MD rn Breneman, Mary Beth, RN RN mb9 Corrections: (The following items were deleted from the chart) 17:38 14:23 rn dw
[2022-10-17 15:03] LABS: SARS-CoV-2 Antigen Rapid Res Negative (Negative)
[2022-10-17] MEDS ORDERED: HYDROCODONE/APAP 5/325 MG TAB PO PRN (16:08)
[2022-10-17] MEDS ORDERED: ACETAMINOPHEN 325 MG TABLET PO PRN (16:08)
[2022-10-17] MEDS ORDERED: ONDANSETRON 4 MG/2 ML VIAL IV PRN (16:14)
[2022-10-17] MEDS ORDERED: HYDRALAZINE HCL 20 MG/ML VIAL IV PRN (16:17)
--- NOTE | 2022-10-17 16:21 | P.HP ---
Certification for Inpatient Patient admitted to: Observation With expected LOS: <2 Midnights Patient will require the following post-hospital care: None Practitioner: I am a practitioner with admitting privileges, knowledge of patient current condition, hospital course, and medical plan of care. Services: Services provided to patient in accordance with Admission requirements found in Title 42 Section 412.3 of the Code of Federal Regulations Patient History Date of Service: 10/17/22 Reason for admission: Chest pain History of Present Illness: Patient is a 62-year-old female with a past medical history significant for hypertension, hyperlipidemia, obesity who presents with complaint of chest pain that has been ongoing intermittently for the past 6 weeks. Patient indicated that chest pain is located in the substernal chest area and that chest pain radiates to the left shoulder, neck and jaw. Patient rated pain as 6/10 in severity and described pain as pressure\squeezing in quality. Patient stated that chest pain is aggravated with exertion and relieved by rest. Patient reported associated signs and symptoms of fatigue, weakness, shortness of breath, palpitations and lightheadedness. Patient reported that she had some blood work done and was told by his PCP to go to the ER due to abnormal labs and presenting symptoms. Patient decided to present to the ER as directed. Allergies benzocaine Allergy (Verified 10/17/22 20:26) swelling, bruise lidocaine Allergy (Verified 10/17/22 20:26) swelling, bruise procaine [From Novocain] Allergy (Verified 10/17/22 20:26) swelling bruise ant bite Allergy (Uncoded 10/17/22 20:26) Anaphylaxis wasp Allergy (Uncoded 10/17/22 20:26) Anaphylaxis Home Medications: Carvedilol [Coreg] 12.5 mg PO DAILY 10/17/22 Lisinopril [Zestril] 40 mg PO DAILY 10/17/22 Rosuvastatin [Crestor*] 10 mg PO DAILY 10/17/22 - Past Medical/Surgical History -: HTN -: HLD -: Obesity Past Surgical History: Reviewed- Non-Contributory - Family History Father -: Other (see notes) (Alzheimer's disease ) Mother -: Heart disease, Other (see notes) (CHF) - Social History Smoking Status: Former smoker Alcohol use: Yes CD- Drugs: No Caffeine use: Yes Place of Residence: Home Review of Systems General: Weakness, Other (Fatigue ) Eyes: Unremarkable ENT: Unremarkable Respiratory: Shortness of Breath, SOB with Excertion Cardiovascular: Chest Pain, Palpitations, Light Headedness Gastrointestinal: Unremarkable Genitourinary: Unremarkable Musculoskeletal: Neck Pain, Shoulder Pain, Other (Jaw pain) Integumentary: Unremarkable Neurological: Weakness Lymphatics: Unremarkable Physical Examination - Physical Exam General: Alert, In no apparent distress, Oriented x3, Cooperative HEENT: Atraumatic, PERRLA, Mucous membr. moist/pink, EOMI, Sclerae nonicteric Neck: Supple, 2+ carotid pulse no bruit, No LAD, Without JVD or thyroid abnormality Respiratory: Clear to auscultation bilaterally, Normal air movement Cardiovascular: No edema, Regular rate/rhythm, Normal S1 S2 Capillary refill: <2 Seconds Gastrointestinal: Normal bowel sounds, Soft and benign, No tenderness Musculoskeletal: No clubbing, No swelling, No tenderness Integumentary: No rashes, No breakdown, No significant lesion Neurological: Normal speech, Normal tone, Normal affect Lymphatics: No axilla or inguinal lymphadenopathy - Studies Laboratory Data (last 24 hrs) 10/17/22 12:25: PT 10.9, INR 0.99 10/17/22 12:25: WBC 8.30, Hgb 10.5 L, Hct 33.7 L, Plt Count 280 10/17/22 12:25: Sodium 139, Potassium 3.9, BUN 20 H, Creatinine 0.75, Glucose 126 H Assessment and Plan - Plan --Chest pain. To rule out ACS. Cardiology consulted. Echocardiogram pending to assess Cardiac structures and functions. We will trend serial troponins- negative so far. Telemetry to monitor for any malignant arrhythmia. Further management per core man. --Hypertension. Poorly controlled. Continue home medications and hydralazine as needed. -- Hyperlipidemia. Continue statin. --Class III obesity. Likely secondary to excess calories intake. Patient counseled on weight reduction, diet and excise therapy. --Acute pain. Will manage pain with current pain medication regimen. --Iron deficiency anemia. Iron levels and ferritin levels low. Patient started on iron infusion. --DM 2. BS monitoring with s\s insulin -- DVT prophylaxis with Lovenox subQ. Discharge Plan: Home Plan to discharge in: 48 Hours - Advance Directives Does patient have a Living Will: No Does patient have a Durable POA for Healthcare: No - Code Status/Comfort Care Code Status Assessed: Yes Physician Review: Patient Assessed, Agree with Above Assessment and Plan Critical Care: No
[2022-10-17] MEDS: ASPIRIN 81 MG CHEWABLE TABLET PO SCH (16:45)
[2022-10-17] MEDS ORDERED: ENOXAPARIN 40 MG/0.4 ML SQ ONE (16:50)
[2022-10-17] MEDS ORDERED: ASPIRIN 81 MG CHEWABLE TABLET ONE (16:50)
[2022-10-17 16:55] LABS: Urine Blood Negative (Negative); Urine Glucose Negative (Negative); Urine Protein Negative (Negative); Urine Specific Gravity 1.015 (1.005-1.030)
[2022-10-17] MEDS: ENOXAPARIN 40 MG/0.4 ML SQ SCH (16:56)
[2022-10-17] MEDS: SOD FERRIC GLUC COMPLX/SUCROSE 125 MG in NA CHLORIDE 0.9% 100 ML IV SCH (17:00)
[2022-10-17 17:04] LABS: Magnesium 2.4 mg/dL (1.6-2.4); Phosphorus 2.5 mg/dL (2.5-4.9); Thyroid Stimulating Hormone 0.49 uIU/mL (0.358-3.740)
[2022-10-17 20:24] VITALS: BMI 41.5
--- NOTE | 2022-10-18 02:29 | CON ---
Date of Consultation: 10/17/2022 Reason For Consultation: Chest pain. History Of Present Illness: This is a 62-year-old female with history of hypertension and diabetes t hat was diagnosed recently who presented with significant exertional symptoms. She had a trip to [facility] recently and when she was there any walking that involved a lot of climbing, she would have significant shortness of breath and chest pressure that radiates to her shoulder, neck, and jaw that forced her to stop and she has been feeling very weak and tired all along. So she came back and saw her primary care physician; however, he directed her to go to the emergency room because of her sympt oms getting more aggressive. Past Medical History: As outlined above in the HPI. Medications: Refer to reconciliation sheet for detailed list. Allergies: NO KNOWN DRUG ALLERGIES. Family History: No premature coronary artery disease or cancer. Social History: She does not smoke or drink. Does not use any drugs. Review of Systems: All systems reviewed and they were negative except as mentioned in HPI. Physical Examination: Vital Signs: Reviewed. Head And Neck: Pupils are equal and reactive to light. Intact eye movements. No JVD. No cervical lymphadenopathy. Neck is supple. Thyroid is not enlarged. Lungs: Clear to auscultation bilaterally. No rhonchi, wheezing, or crackles. No accessory muscle u se. Heart: Regular rate and rhythm. No extra sounds. Abdomen: Soft, nontender. Bowel sounds positive. No organomegaly. No masses or hernia. No rigidi ty or rebound. Extremities: Trace edema. No clubbing or cyanosis. Intact pulses. Skin: No rash. Neurologic: Alert, awake, and oriented x3. No acute focal deficits appreciated. Investigations: First troponin is negative. BUN 20, creatinine 0.75, and hemoglobin was 10.5. Assessment And Recommendation: 1.Chest pain, very typical and exertional. This is likely unstable angina. Admit and load with bab y aspirin and if troponin rises, then start heparin drip. Keep n.p.o. past midnight and we will plan for coronary angiogram tomorrow morning and obtain an echo in the morning. 2.Hypertension. Blood pressure is acceptable to resume home medications. SR/MODL Voice ID: [id number] Report ID: [id number]
[2022-10-18] MEDS ORDERED: D50W 25 GM/50 ML SYRINGE IV PRN (03:41)
[2022-10-18] MEDS ORDERED: GLUCAGON 1 MG/VIAL IM PRN (03:41)
[2022-10-18 03:42] LABS: Absolute Lymphocytes (CBC) 2.9 K/uL (0.7-4.9); Hematocrit 30.5 % (36.0-45.0); Lymphocytes % 35.5 % (15.3-44.8); MCV 71.3 fL (80-100); MPV 9.2 fL (7.6-11.3); RBC Red Blood Cell Count 4.28 M/uL (3.86-4.86)
[2022-10-18 04:01] LABS: Potassium 3.6 mmol/L (3.5-5.1)
[2022-10-18] MEDS ORDERED: D10W 125 ML IV PRN (04:59)
[2022-10-18] MEDS: ASPIRIN 81 MG CHEWABLE TABLET PO SCH (06:22)
[2022-10-18] MEDS ORDERED: HEPA 1000U/500MLS 2,000 UNIT/1,000 ML BAG IV ONE (06:32)
[2022-10-18] MEDS ORDERED: LIDOCAINE 1% 20 ML MDV ONE (06:32)
[2022-10-18] MEDS ORDERED: MIDAZOLAM HCL 2 MG/2 ML INJ ONE (06:33)
[2022-10-18] MEDS ORDERED: HEPARIN 5000 UNIT/ML 1 ML VIAL ONE (06:33)
[2022-10-18] MEDS ORDERED: FENTANYL CITR 100 MCG/2 ML ONE (06:33)
[2022-10-18] MEDS ORDERED: VERAPAMIL HCL 10 MG/4 ML VIAL IV ONE (06:33)
[2022-10-18] MEDS ORDERED: ATROPINE SULF 1 MG/10 ML SYR IV ONE (06:34)
[2022-10-18] MEDS ORDERED: NA CHLORIDE 0.9% 500 ML ONE ×2 (06:34→06:39)
[2022-10-18] MEDS ORDERED: HEPARIN 10,000 UNIT/10 ML VIAL IV ONE (06:34)
[2022-10-18] MEDS ORDERED: ONDANSETRON 4 MG/2 ML VIAL ONE (07:04)
[2022-10-18] MEDS: INSULIN -REGULAR HUMAN 50 UNIT/0.5 ML ML SQ SCH ×3 (07:30→15:49)
[2022-10-18] MEDS ORDERED: carvediloL 12.5 MG TAB PO SCH (09:00)
[2022-10-18] MEDS ORDERED: POTASSIUM CL SA 10 MEQ TAB PO ONE (09:00)
[2022-10-18] MEDS ORDERED: lisinopriL 20 MG TAB PO SCH (09:00)
[2022-10-18] MEDS ORDERED: ROSUVASTATIN 10 MG TAB PO SCH ×2 (09:00→21:00)
[2022-10-18] MEDS: ENOXAPARIN 40 MG/0.4 ML SQ SCH (10:21)
[2022-10-18] MEDS: SOD FERRIC GLUC COMPLX/SUCROSE 125 MG in NA CHLORIDE 0.9% 100 ML IV SCH (10:25)
--- NOTE | 2022-10-18 13:00 | OP ---
Date of Procedure: 10/18/2022 Surgeon: CAYLA YODER Procedures Performed: 1.Selective coronary angiogram. 2.Left heart catheterization. Indication: Unstable angina. Access: Right radial artery 6-Cameroonian closed with TR band. Complications: None. Bleeding: Less than 10 mL. Anesthesia: Total sedation time was 20 minutes. Description Of Procedure: After risks, benefits, alternatives were explained, the patient agreed to the procedure and signed informed consent. The patient was brought into the cardiac catheterization laboratory, prepped and draped in the usual sterile fashion. Then, I accessed right radial artery us ing pediatric micropuncture kit, placed a 6-Cameroonian Slender sheath, took 5-Cam[place]onian [place] 4.0 catheter i nto the aortic root over a J-wire, engaged left main and right coronary artery and took standard view s and the catheter was pushed over the wire into the LV, measured the LVEDP, and pullback did not rec ord any gradient. Then, we removed the catheter and sheath, placed TR band with good hemostasis. Findings: 1.Left main; normal. 2.LAD; large, normal. Normal diagonal branches. 3.Left circumflex is normal. 4.RCA is normal and dominant circulation. 5.Elevated LVEDP at 15 mmHg. Conclusion: 1.Normal coronary arteries. 2.Elevated LVEDP. Recommendation: Obtain an echo and treat with diuretics. SR/MODL Voice ID: [id number] Report ID: [id number]
[2022-10-18 14:50] VITALS: O2SAT 95
[2022-10-18 16:09] VITALS: BP 133/55; TEMP 97.4
[2022-10-18] MEDS ORDERED: FUROSEMIDE 20 MG/ 2ML VIAL IV ONE (17:12)
--- NOTE | 2022-10-18 17:14 | EKG ---
Test Date: 2022-10-17 Test Time: 12:15:09 Offset Lithographic Press Setter: MB MEASUREMENT RESULTS: Intervals: Rate: 84 NV: 142 QRSD: 72 QT: 366 QTc: 432 [place]: P: 14 NV: 142 QRS: 53 T: 51 INTERPRETIVE STATEMENTS: Normal sinus rhythm Normal ECG No previous ECG available for comparison Electronically Signed On 10-18-22 17:10:04 MANAGER MAC by Marty Paez
--- NOTE | 2022-10-18 17:30 | P.DS ---
Admission Date: 10/17/22 Discharge Date: 10/18/22 Disposition: ROUTINE DISCHARGE Discharge Condition: GOOD Reason for Admission: Chest pain Consultations: Cardiology - Dr. Paez Brief History of Present Illness: 62yo F, PMH: HTN, HLD, obesity. Presented to ED due to chest pain, intermittent in nature over last 6 weeks. Substernal, radiates to left shoulder, neck, and jaw. Pressure/squeezing in quality. Aggravated with exertion, relieved by rest. Patient reported associated signs and symptoms of fatigue, weakness, shortness of breath, palpitations and lightheadedness. Patient reported that she was seen by her PCP and recommended to present to ED due to symptoms. Hospital Course: Problem List Chest pain HTN HLD Morbid obesity Iron deficiency anemia Patient presented with chest pain concerning for unstable angina. Troponins were negative and stable x 3. Dr. Paez (Cardiology) was consulted. Patient underwent cardiac catheterization which revealed normal coronary arteries, with mildly elevated LVEDP: 15 mmHg Echocardiogram was reportedly normal. Dr. Paez recommended low dose lasix trial for possible diastolic dysfunction. A d-dimer was obtained and was 580 (upper limit of normal: 500), and age adjusted upper limit: 620. Discuss[address] with Dr. Paez, and recommended obtaining CTA to rule out PE in the morning, avoiding additional IV contrast today. Discussed recommendations with patient. Low likelihood of PE, since she is not hypoxic, not tachycardic, but did have a long trip and works at home at a desk, with dyspnea on exertion. After discussion, patient decided she felt well enough to go home, requested discharge. She made arrangement to follow up with her doctor, and I recommended obtaining a CTA chest to rule out PE as soon as she can get this arranged.. Patient was also noted to have significant iron deficiency, with anemia. Received IV iron daily. To continue oral supplementation on discharge. Iron deficiency anemia could explain most of her symptoms as well. She was also noted to have borderline low-normal TSH, and low free T4, which she reports has been the case for a few years, with h/o thyroid nodules, and has undergone extensive workup. Could in part be due to low iron levels playing a role. Unclear if she has had further evaluation for central hypothyroidism. Recommend follow up with PCP for further evaluation. A1c: 6.4, putting patient in borderline diabetic range. Follow up with PCP Follow up: PCP within next few days; CTA Cardiology in ~2 weeks, re-evaluate lasix Vital Signs/Physical Exam: Temp Pulse Resp BP Pulse Ox 97.4 F 83 16 133/55 L 96 10/18/22 16:00 10/18/22 16:00 10/18/22 16:00 10/18/22 16:00 10/18/22 16:00 General: Alert, In no apparent distress, Oriented x3 HEENT: EOMI, Sclerae nonicteric Respiratory: Clear to auscultation bilaterally, Normal air movement Cardiovascular: No edema, Regular rate/rhythm Gastrointestinal: Soft and benign, Non-distended, No tenderness Integumentary: No rashes, No significant lesion Neurological: Normal speech, Normal affect Laboratory Data at Discharge: WBC 8.20 K/uL (4.3-10.9) 10/18/22 02:57 Hgb 9.7 g/dL (12.0-15.0) L 10/18/22 02:57 Hct 30.5 % (36.0-45.0) L 10/18/22 02:57 Plt Count 257 K/uL (152-406) 10/18/22 02:57 PT 10.9 SECONDS (9.5-12.5) 10/17/22 12:25 INR 0.99 10/17/22 12:25 Sodium 139 mmol/L (136-145) 10/18/22 02:57 Potassium 3.6 mmol/L (3.5-5.1) 10/18/22 02:57 BUN 18 mg/dL (7-18) 10/18/22 02:57 Creatinine 0.74 mg/dL (0.55-1.02) 10/18/22 02:57 Glucose 136 mg/dL (74-106) H 10/18/22 02:57 Phosphorus 2.5 mg/dL (2.5-4.9) 10/17/22 12:25 Magnesium 2.4 mg/dL (1.6-2.4) 10/17/22 12:25 Triglycerides 252 mg/dL (<150) H 10/17/22 12:25 Cholesterol 170 mg/dL (<200) 10/17/22 12:25 HDL Cholesterol 52 mg/dL (40-60) 10/17/22 12:25 Cholesterol/HDL Ratio 3.27 10/17/22 12:25 Home Medications: Carvedilol [Coreg] 12.5 mg PO DAILY 10/17/22 Lisinopril [Zestril] 40 mg PO DAILY 10/17/22 Rosuvastatin [Crestor*] 10 mg PO DAILY 10/17/22 Ferrous Sulfate [Iron] 325 mg PO DAILY 30 Days #30 tab 10/18/22 Furosemide [Lasix] 20 mg PO DAILY 30 Days #30 tab 10/18/22 New Medications: Ferrous Sulfate [Iron] 325 mg PO DAILY 30 Days #30 tab Furosemide [Lasix] 20 mg PO DAILY 30 Days #30 tab Physician Discharge Instructions: Patient presented with chest pain concerning for unstable angina. Troponins were negative and stable x 3. Dr. Paez (Cardiology) was consulted. Patient underwent cardiac catheterization which revealed normal coronary arteries, with mildly elevated LVEDP: 15 mmHg Echocardiogram was reportedly normal. Dr. Paez recommended low dose lasix trial for possible diastolic dysfunction. A d-dimer was obtained and was 580 (upper limit of normal: 500), and age adjusted upper limit: [address]. Discuss[address] with Dr[address] Paez, and recommended obtaining CTA to rule out PE in the morning, avoiding additional IV contrast today. Discussed recommendations with patient. Low likelihood of PE, since she is not hypoxic, not tachycardic, but did have a long trip and works at home at a desk, with dyspnea on exertion. After discussion, patient decided she felt well enough to go home, requested discharge. She made arrangement to follow up with her doctor, and I recommended obtaining a CTA chest to rule out PE as soon as she can get this arranged.. Patient was also noted to have significant iron deficiency, with anemia. Received IV iron daily. To continue oral supplementation on discharge. Iron deficiency anemia could explain most of her symptoms as well. She was also noted to have borderline low-normal TSH, and low free T4, which she reports has been the case for a few years, with h/o thyroid nodules, and has undergone extensive workup. Could in part be due to low iron levels playing a role. Unclear if she has had further evaluation for central hypothyroidism. Recommend follow up with PCP for further evaluation. A1c: 6.4, putting patient in borderline diabetic range. Follow up with PCP Follow up: PCP within next few days; CTA Cardiology in ~2 weeks, re-evaluate lasix Followup: OOT,OOT [Primary Care Provider] - Time spent managing pt's care (in minutes): 45
--- NOTE | 2022-10-19 06:54 | ECHO ---
HEIGHT: 5 ft 2 in WEIGHT: 227 lb 0 oz DATE OF STUDY: 10/18/[address]: Larry Rodriguez 2-DIMENSIONAL: YES M.MODE: YES DOPPLER: YES COLOR FLOW: YES TDS: YES PORTABLE: YES DEFINITY: BUBBLE STUDY: DIAGNOSIS: CHEST PAIN CARDIAC HISTORY: CATHERIZATION: NO SURGERY: NO PROSTHETIC VALVE: NO PACEMAKER: NO MEASUREMENTS (cm) DIASTOLIC (NORMALS) SYSTOLIC (NORMALS) IVSd 1.1 (0.6-1.2) LA Diam 2.6 (1.9-4.0) LVEF 74% LVIDd 4.7 (3.5-5.7) LVIDs 2.7 (2.0-3.5) %FS 43% LVPWd 1.2 (0.6-1.2) Ao Diam 2.7 (2.0-3.7) 2 DIMENSIONAL ASSESSMENT: RIGHT ATRIUM: NORMAL LEFT ATRIUM: NORMAL RIGHT VENTRICLE: NORMAL LEFT VENTRICLE: NORMAL TRICUSPID VALVE: NORMAL MITRAL VALVE: NORMAL PULMONIC VALVE: NORMAL AORTIC VALVE: NORMAL PERICARDIAL EFFUSION: NONE AORTIC ROOT: NORMAL LEFT VENTRICULAR WALL MOTION: UNABLE TO EVALUATE, POOR WINDOWS DOPPLER/COLOR FLOW: SEE BELOW COMMENTS: 1. POOR WINDOWS 2. LEFT VENTRICULAR EJECTION FRACTION IS NORMAL 60-65% 3. MILD DIASTOLIC DYSFUNCTION TECHNOLOGIST: TORRES ALMAZAN
== END 2022-10-18 18:45 | disposition home or self-care (01) ==
LOC: ER 11:51 → ERHOLD 16:06 → 2ND 18:43
PROVIDERS: ADMIT Internal Medicine; ATTEND Hospitalist
DX: R07.89 Other chest pain (principal); I10 Essential (primary) hypertension; E78.5 Hyperlipidemia, unspecified; D50.9 Iron deficiency anemia, unspecified; E11.9 Type 2 diabetes mellitus without complications; R06.02 Shortness of breath; R00.2 Palpitations; R68.84 Jaw pain; M54.2 Cervicalgia; M25.512 Pain in left shoulder; E04.1 Nontoxic single thyroid nodule; E66.01 Morbid (severe) obesity due to excess calories; Z68.41 Body mass index [BMI] 40.0-44.9, adult; Z71.3 Dietary counseling and surveillance; Z71.82 Exercise counseling; Z87.891 Personal history of nicotine dependence; Z79.899 Other long term (current) drug therapy; Z88.4 Allergy status to anesthetic agent; Z91.038 Other insect allergy status; Z20.822 Contact with and (suspected) exposure to COVID-19; Z82.49 Family history of ischemic heart disease and other diseases of the circulatory system
CPT/HCPCS: 93005; 93306; 85025 ×2; 80048 ×2; 36415 ×2; 86900; 83735; 86850; 84100; 85610; 85044; 80061; 86901; 82947 ×2; 85379; 84443; 81003; 83036; 84484 ×3; 84439; 82728; 82607; 83540; 83880; 84466; 71045; 93458; 76937; 99285; 87811; C1893; Q9966; J2001; J1644 ×2; J1650 ×2; J2250; J3010; J2916; G0378 ×5; J7040 ×2; J0461; J2405